=== PATIENT | male | born 1935 | race Caucasian/White ===

== ENCOUNTER 2019-03-16 16:26 | Inpatient (IN) | payer OTHER, MEDICAID ==
[~2019-03-16] VITALS: Ht 167.6 cm; Wt 75.3 kg
[~2019-03-16 16:26] MED LIST: APIX5TAB PO; BUDE6HFA INH; CARV6.2554 PO; FERR324T11 PO; FURO20TA4 PO; IPRA3AMP9 INH; LEVA1.2527 INH; LIP10 PO; PRED10TA PO
[2019-03-16] MEDS ORDERED: ROCURONIUM BROMIDE 10 MG/ML (ZEMURON) IV ONE (18:00)
[2019-03-16] MEDS ORDERED: LR 1,000 ML IV.SOLN IV ONE (18:00)
[2019-03-16] MEDS ORDERED: NS IRRIG SOLN 1000 ML IR ONE (18:00)
[2019-03-16] MEDS ORDERED: SEVOFLURANE 15 MIN GAS INH ONE (18:00)
--- NOTE | 2019-03-17 19:10 | NUR ---
OPENING NOTES RECEIVE REPORT FROM MORNING SHIFT NURSE. PATIENT ADMITTED BY DR. VALENCIA WITH THE DIAGNOSIS OF DIVERTING COLOSTOMY. PATIENT ON MECHANICAL VENTILATOR, OPERATING WELL. NO SIGNS OF RESPIRATORY DISTRESS AND DISCOMFORT NOTED. G-TUBE NOTED WITH DRAIN, DRAINING BY GRAVITY. RECTAL TUBE NOTED, REYNOSO CATHETER ATTACHED PROPERLY DRAINING BY GRAVITY. PATIENT AND FAMILY ORIENTED TO ROOM. CALL LIGHT WITHIN REACH. SAFETY PRECAUTIONS IN PLACE. BED LOCKED AND LOWEST POSITION. WILL CONTINUE TO MONITOR PATIENT.
[2019-03-17] MEDS ORDERED: DILTIAZEM HCL 30 MG TABLET ONE (19:46)
[2019-03-17] MEDS ORDERED: ACETAMINOPHEN 650 MG/20.3 ML UDC ONE (19:58)
[2019-03-17 20:00] VITALS: BP_SYST 125
--- NOTE | 2019-03-17 20:11 | NUR ---
CHON OLIVER MADE AWARE OF PATIENTS HEART RATE 139. MD ORDERED TO CONTINUE MEDICATION. CARDIZEM 30 MG WAS GIVEN. WILL CONTINUE TO MONITOR PATIENT
[2019-03-17 20:15] VITALS: BP_SYST 125
[2019-03-17] MEDS ORDERED: *TPN PER PHARMACY XX PRN (21:45)
[2019-03-17] MEDS ORDERED: ACETAMINOPHEN 650 MG/20.3 ML UDC GT PRN (21:45)
--- NOTE | 2019-03-17 22:00 | NUR ---
CONSULTATION PAGED REASON FOR CONSULTATION:PULMO WAS CONSULT CALLED?Y PERSON WHO WAS NOTIFIED:KHADIJAH CONSULTING PHYSICIAN:SHELLY CARVALHO SENIOR MECHANICAL PROJECT ENGINEER SPECIALTY:PULMONARY SENIOR MECHANICAL PROJECT ENGINEER PHONE NUMBER:[phone] REQUESTING PHYSICIAN:MEERA MACHADO
--- NOTE | 2019-03-17 22:02 | NUR ---
CONSULTATION PAGED REASON FOR CONSULTATION:FOR DIVERTING COLOSTOMY WAS CONSULT CALLED?Y PERSON WHO WAS NOTIFIED:EFRAIN CONSULTING PHYSICIAN:SHERIDAN TRIPLETT MARINE PIPEFITTER SPECIALTY:SURGEON MARINE PIPEFITTER PHONE NUMBER:[phone] REQUESTING PHYSICIAN:MEERA MACHADO
[2019-03-17] MEDS ORDERED: ENOX60DI7 SQ (22:03)
[2019-03-17] MEDS ORDERED: [UNRECOGNIZED DRUG - CODE] IV (22:03)
[2019-03-17] MEDS ORDERED: DILT30TA3 GT (22:03)
[2019-03-17] MEDS ORDERED: MEGE400O4 GT (22:03)
[2019-03-17] MEDS ORDERED: CALC500O PO (22:03)
[2019-03-17] MEDS ORDERED: NYSCR30 TP (22:03)
[2019-03-17] MEDS ORDERED: LORA-259 PO (22:03)
[2019-03-17] MEDS ORDERED: ONDA4VIA52 IVP (22:03)
[2019-03-17] MEDS ORDERED: FURO40TA5 IVP (22:03)
[2019-03-17] MEDS ORDERED: METR500T IVPB (22:06)
[2019-03-17] MEDS ORDERED: MERO500V IV (22:06)
[2019-03-17] MEDS ORDERED: SSREG SUBCUT (22:07)
[2019-03-17] MEDS ORDERED: VANC250C11 GT (22:13)
[2019-03-17] MEDS ORDERED: REGL10 IVP (22:13)
[2019-03-17] MEDS ORDERED: PRO40 IVP (22:13)
[2019-03-17] MEDS ORDERED: POTA20TA83 GT (22:13)
[2019-03-17] MEDS: VANCOMYCIN HCL 250 MG CAPSULE GT SCH (22:30)
[2019-03-17] MEDS ORDERED: VERAPAMIL HCL 2.5 MG/ML 2ML VIAL IV SCH (22:30)
[2019-03-17] MEDS ORDERED: LevALBUTEROL HCL 1.25 MG/0.5 ML *CONC.* VIAL.NEB (XOPENEX CONC.) INH PRN (22:30)
[2019-03-17] MEDS ORDERED: METOPROLOL TARTRATE 5 MG/5 ML VIAL IVP PRN (22:30)
[2019-03-17] MEDS ORDERED: ONDANSETRON HCL 4 MG/2 ML VIAL IVP SCH (22:30)
[2019-03-17] MEDS ORDERED: DIGOXIN 0.5 MG/2 ML AMP IVP ONE (22:30)
[2019-03-17] MEDS: DILTIAZEM HCL 30 MG TABLET GT SCH (22:34)
[2019-03-17] MEDS ORDERED: ACETAMINOPHEN 325 MG TABLET GT PRN (22:45)
[2019-03-17] MEDS ORDERED: KCL 20 mEq in D5/0.45NS 1000mL 1,000 ML IV ONE (23:04)
[2019-03-17] MEDS ORDERED: MEROPENEM 500 MG VIAL IV ONE (23:15)
--- NOTE | 2019-03-17 23:30 | NUR ---
MED PASS DUE MEDICATIONS GIVEN AT THIS TIME. PATIENT ASLEEP, NO SIGNS OF RESPIRATORY DISTRESS AND DISCOMFORT NOTED. BREATHING EVEN AND UNLABORED. IVF INFUSING WELL, PATENCY NOTED. PEG-TUBE IN PLACE DRESSING INTACT, DRAINING BY GRAVITY, REYNOSO CATHETER DRAINING BY GRAVITY, RECTAL TUBE NOTED, DRAINING BY GRAVITY. SAFETY PRECAUTIONS IN PLACE. WILL CONTINUE TO MONITOR PATIENT
[2019-03-17] MEDS: CARVEDILOL 6.25 MG TABLET (COREG) PO SCH (23:32)
[2019-03-17] MEDS: KCL 20 mEq in D5/0.45NS 1000mL 1,000 ML IV SCH (23:32)
[2019-03-17] MEDS: PANTOPRAZOLE SODIUM 40 MG/VIAL (PROTONIX) IVP SCH (23:33)
[2019-03-17] MEDS: MEROPENEM 500 MG VIAL IV SCH (23:34)
--- NOTE | 2019-03-17 23:42 | NUR ---
CONSULTATION PAGED REASON FOR CONSULTATION:PULMO WAS CONSULT CALLED?Y PERSON WHO WAS NOTIFIED:CARMEN CONSULTING PHYSICIAN:SIXTO GOLDEN PRICING INTERN SPECIALTY:PULMONARY PRICING INTERN PHONE NUMBER:[phone] REQUESTING PHYSICIAN:MEERA MACHADO
--- NOTE | 2019-03-18 00:01 | NUR ---
RN ROUNDS PATIENT ASLEEP AT THIS TIME, IVF INFUSING WELL. REYNOSO CATHETER DRAINING BY GRAVITY. G-TUBE WITH DRAIN, DRAINING BY GRAVITY, MECHANICAL VENTILATOR OPERATING WELL. NO SIGNS OF RESPIRATORY DISTRESS NAD DISCOMFORT NOTED. SAFETY PRECAUTIONS IN PLACE. WILL CONTINUE TO MONITOR PATIENT.
[2019-03-18] MEDS: LevALBUTEROL HCL 1.25 MG/0.5 ML *CONC.* VIAL.NEB (XOPENEX CONC.) INH SCH ×4 (01:18→19:41)
[2019-03-18 02:06] VITALS: BP_SYST 125
[2019-03-18 02:36] VITALS: BP_SYST 121
--- NOTE | 2019-03-18 04:30 | NUR ---
WOUND CARE WOUND CARE DONE AT THIS TIME, PHOTOGRAPH TAKEN AND ADDED TO CHART FOR DOCUMENTATION. IVF INFUSING WELL. REYNOSO CATHETER DRAINING BY GRAVITY. G-TUBE WITH DRAIN, DRAINING BY GRAVITY, MECHANICAL VENTILATOR OPERATING WELL. NO SIGNS OF RESPIRATORY DISTRESS NAD DISCOMFORT NOTED. SAFETY PRECAUTIONS IN PLACE. WILL CONTINUE TO MONITOR PATIENT.
[2019-03-18] MEDS: DILTIAZEM HCL 30 MG TABLET GT SCH ×2 (05:25→14:22)
[2019-03-18] MEDS: VANCOMYCIN HCL 250 MG CAPSULE GT SCH ×2 (05:28)
[2019-03-18] MEDS: MEROPENEM 500 MG VIAL IV SCH (05:29)
--- NOTE | 2019-03-18 05:36 | NUR ---
HELD CARDIZEM AT THIS TIME/BS=87 CHARGE NURSE MADE AWARE OF PATIENTS VITAL SIGNS BP 103/50, HR 92. PATIENT ASLEEP AT THIS TIME. NO SIGNS OF RESPIRATORY DISTRESS AND DISCOMFORT NOTED. DUE MEDICATION ARE GIVEN. SAFETY PRECAUTIONS IN PLACE. WILL CONTINUE TO MONITOR
--- NOTE | 2019-03-18 06:22 | NUR ---
CLOSING NOTES PATIENT ASLEEP AT THIS TIME. NO SIGNS OF RESPIRATORY DISTRESS AND DISCOMFORT NOTED. PATIENT ON MECHANICAL VENTILATOR OPERATING WELL. SETTING KEPT THROUGHOUT THE SHIFT. IVF INFUSING WELL, PATENCY NOTED. IV SITE, NO REDNESS AND INFILTRATION NOTED, COVERED WITH CLEAN AND DRY DRESSING. G-TUBE, DRAINING WELL BY GRAVITY, REYNOSO CATHETER, ATTACHED AND SECURED, DRAINING BY GRAVITY. RECTAL TUBE, ATTACHED AND DRAINING BY GRAVITY. SAFETY PRECAUTIONS IN PLACE. BED LOCKED AND AT LOWEST POSITION. ALL NEEDS MET THROUGHOUT THE SHIFT. WILL CONTINUE TO MONITOR UNTIL ENDORSED TO ONCOMING SHIFT NURSE.
--- NOTE | 2019-03-18 07:15 | NUR ---
Report and patient given by NOC shift nurse. In no acute distress. Side rails x 3 up. Call light with in reach.
[2019-03-18 07:32] LABS: BASOPHILS # (AUTO) 0.1 K/uL (0.0-0.2); BASOPHILS % (AUTO) 0.7 % (0.0-2.0); EOSINOPHILS # (AUTO) 0.1 K/uL (0.0-0.4); EOSINOPHILS % (AUTO) 0.7 % (0.0-4.0); HEMATOCRIT 28.6 % (36-54); HEMOGLOBIN 9.2 g/dL (14.0-18.0); LYMPHOCYTES % (AUTO) 20.1 % (20.5-51.5); MEAN CORPUSCULAR HEMOGLOBIN 30 pg (27-31); MEAN CORPUSCULAR HGB CONC 32 % (32-36); MEAN CORPUSCULAR VOLUME 93 fL (79.0-98.0); MONOCYTES % (AUTO) 6.6 % (1.7-9.3); NEUTROPHILS # (AUTO) 10.7 K/uL (1.8-7.7); NEUTROPHILS % (AUTO) 71.9 % (40.0-70.0); PLATELET COUNT (AUTO) 381 K/uL (130-430); RED BLOOD CELL COUNT(AUTO) 3.06 MIL/uL (4.2-6.2); RED CELL DISTRIBUTION WIDTH 19.5 % (9.0-15.0); WHITE BLOOD COUNT (AUTO) 14.9 K/uL (4.8-10.8)
[2019-03-18] MEDS ORDERED: VANCOMYCIN HCL ORAL SOLUTION 250 MG/5 ML, 80 ML GT SCH (07:35)
[2019-03-18 08:00] VITALS: BP_SYST 93
[2019-03-18 08:01] LABS: INR 1.3 (0.80-1.20); PROTHROMBIN TIME 13.1 SECS (9.5-12.5)
[2019-03-18 08:13] LABS: TRIGLYCERIDES 231 mg/dL (30-150)
[2019-03-18 08:31] LABS: CHOLESTEROL 84 mg/dL (<200); HDL CHOLESTEROL 7 mg/dL (>45); LDL CHOLESTEROL 46 mg/dL (<100)
[2019-03-18 08:40] LABS: ANION GAP 4 (5-15); CALCIUM 9.5 mg/dL (8.4-11.0); CHLORIDE 112 mmol/L (98-107); GLUCOSE 92 mg/dL (70-99); POTASSIUM 4.8 mmol/L (3.5-5.1); SODIUM SERUM 145 mmol/L (136-145)
[2019-03-18 08:41] LABS: ALANINE AMINOTRANSFERASE 16 U/L (12-78); ALBUMIN 1.3 g/dL (3.4-4.8); ASPARTATE AMINOTRANSFERASE 74 U/L (10-37); CREATININE 0.79 mg/dL (0.55-1.30); LIPASE 124 U/L (73-393); THYROID STIMULATING HORMONE 4.09 uIu/mL (0.36-3.74); TOTAL BILIRUBIN 0.9 mg/dL (0.0-1.0); UREA NITROGEN, BLOOD 44 mg/dL (8-21)
[2019-03-18] MEDS ORDERED: FUROSEMIDE 40 MG TABLET GT SCH (09:00)
[2019-03-18] MEDS ORDERED: PREDNISONE 10 MG TABLET PO SCH (09:00)
--- NOTE | 2019-03-18 09:15 | NUR ---
Assessed patient. In no acute distress. Side rails x 3 up. Call light with in reach.
[2019-03-18] MEDS: NYSTATIN 30 GM TOPICAL CREAM TP SCH ×2 (09:44→20:44)
[2019-03-18] MEDS: PANTOPRAZOLE SODIUM 40 MG/VIAL (PROTONIX) IVP SCH ×2 (09:44→20:39)
[2019-03-18] MEDS: CARVEDILOL 6.25 MG TABLET (COREG) PO SCH (09:45)
--- NOTE | 2019-03-18 10:13 | NUR ---
Nutrition Update Patel Scale 11 noted. Pt admitted for diverting colostomy Diet: TPN BMI: 26.9 kg/m2 RD to follow per nutrition care standards.
--- NOTE | 2019-03-18 10:55 | NUR ---
RT NOTES- AC 12 REPORTED TO THAT PT HAS BEEN TRIGGERING APENIC ALARM. AFTER ASSESSING PT CONDITION. PER CHANGED VENT SETTINGS TO AC 12, 450, PEEP 5, 40%FIO2. NIDHI HIGUERA AND NIDHI ABBOTT MADE AWARE. WILL CONTINUE MONITORING.
--- NOTE | 2019-03-18 11:15 | NUR ---
Assessed patient. In no acute distress. Side rails x 3 up. Call light with in reach.
[2019-03-18] MEDS: KCL 20 mEq in D5/0.45NS 1000mL 1,000 ML IV SCH ×4 (11:20→22:22)
--- NOTE | 2019-03-18 13:15 | NUR ---
Assessed patient. In no acute distress. Side rails x 3 up. Call light with in reach.
--- NOTE | 2019-03-18 13:40 | NUR ---
RT NOTES - 30%FIO2 DECREASED FIO2 TO 30% PER DR. LIN TITRATION ORDERS.
--- NOTE | 2019-03-18 13:50 | NUR ---
RT NOTES- SPUTUM SAMPLE SPUTUM SAMPLE COLLECTED AND SENT TO LAB AT 1345. NOTIFIED NIDHI ABBOTT.
[2019-03-18] MEDS: MEROPENEM 500 MG in NS 50 ML IV SCH ×2 (14:19→21:02)
--- NOTE | 2019-03-18 15:15 | NUR ---
Assessed patient. In no acute distress. Side rails x 3 up. Call light with in reach.
--- NOTE | 2019-03-18 16:02 | NUR ---
MD Mabry at bedside.
--- NOTE | 2019-03-18 16:55 | NUR ---
Called Anusha Colvin per MD Mabry request for colonoscopy and pathology report, was informed to contact medical records tomorrow, will endorse to NOC shift.
--- NOTE | 2019-03-18 17:05 | NUR ---
MD Mabry new order NPO, no medications through GT tube.
--- NOTE | 2019-03-18 17:15 | NUR ---
Assessed patient. In no acute distress. Side rails x 3 up. Call light with in reach.
--- NOTE | 2019-03-18 17:26 | NUR ---
Informed collection specialist instructional supervisor MD Silvio Mabry's request to hold off on all gt medications and MD Talbot requested to reconcile heart medications with instructional supervisor. New order to hold cardizem and coreg, new order lopressor 5 mg IVP every 6 hours. MD Anguiano stated surgery could cause drop in blood pressure, will address lasix after surgery. Orders placed and carried out.
[2019-03-18] MEDS: METOPROLOL TARTRATE 5 MG/5 ML VIAL IVP SCH ×2 (18:42→23:47)
--- NOTE | 2019-03-18 19:15 | NUR ---
Report given and endorsed patient to oncoming shift. Assessed patient. In no acute distress. Side rails x 3 up. Call light with in reach.
[2019-03-18 20:00] VITALS: BP_SYST 95
--- NOTE | 2019-03-18 20:00 | NUR ---
Received pt. from day RN. Assessment done and completed. Keep pt. HOB UP elevated @ 45-55 degrees angle. Pt. kept on NPO. V/S taken and recorded. Pt. on continuous Vent on AC mode rate = 12, TV = 450 , F102 = 40 % , Peep = 5. Suctioned secretions from the trach. and mouth as needed. Keep airway patent and clear. Keep pt. safe and fiberglass laminator bed. Pt. afib @ the monitor @ the 70's to low 100's per minute. No s/s of facial grimacing. No s/ of agitation or restlessness. No s/s of moaning or crying. Pt. calm and sleeping.
--- NOTE | 2019-03-18 20:30 | NUR ---
TPN and LIPID started @ around this time. TPN started @ 42 mls./hr. and Lipid started @ 5 mls./hr. attached to the TPN tube in a Y connection with the New Filter attached to the bottom. Keep pt. on NPO. Replaced a new bag of IVF of D51/2 NS with Potassium Chloride 20 meq. and decreased the rate from 100 mls/hr. to 50 mls/hr. when the TPN started as ordered by the Doctor. Keep pt. Turned/repositioned pt. to the sides with HOB UP @ all times between 45-55 degrees angle.
[2019-03-18] MEDS: FAT EMULSIONS 250 ML IV SCH (20:34)
--- NOTE | 2019-03-18 20:35 | NUR ---
Due meds. IV. medications administered to the pt. @ around this time.
[2019-03-18] MEDS ORDERED: ENOXAPARIN SODIUM 40 MG/0.4 ML SYRINGE SUBCUT SCH (21:00)
[2019-03-18] MEDS ORDERED: [UNRECOGNIZED DRUG - OTHER] IV SCH ×8 (21:00)
[2019-03-18] MEDS ORDERED: SODIUM ACETATE IV SCH ×8 (21:00)
[2019-03-18] MEDS ORDERED: POTASSIUM CHLORIDE IV SCH ×8 (21:00)
[2019-03-18] MEDS ORDERED: TPN CENTRAL IV SCH ×8 (21:00)
[2019-03-18] MEDS ORDERED: KCL 20 mEq in D5/0.45NS 1000mL 1,000 ML IV ONE (21:28)
[2019-03-19] VITALS (7 sets, daily range): BP systolic 98–125
--- NOTE | 2019-03-19 | NUR ---
Accucheck taken with result of = 143 , No coverage of Insulin needed.
--- NOTE | 2019-03-19 00:30 | NUR ---
Pt. sleeps most of the time, aphasic, non-verbal due to presence of Trach. Arousable by touch and environmental noise. Stil Afib. @ the monitor. Keep clean, dry, safe and commodity industry analyst bed. Keep pt. on NPO. TPN and Lipids ongoing @ the same rate it was started.
[2019-03-19] MEDS: LevALBUTEROL HCL 1.25 MG/0.5 ML *CONC.* VIAL.NEB (XOPENEX CONC.) INH SCH ×4 (00:59→20:07)
--- NOTE | 2019-03-19 04:00 | NUR ---
Complete bedbathe given to the pt. Keep pt. clean and dry in bed. Keep NPO. No s/s of agitation or restlessness. Pt. sleeping calm and quiet. Suctioned secretions from the Trach. and mouth as needed. Provided pt. oral care. Keep HOB UP @ all times.
--- NOTE | 2019-03-19 06:20 | NUR ---
Due IV meds. given @ around 0620 Am and Accucheck result = 142 , No coverage of Insulin needed. Monitor v/s @ the bedside. Pt. still afib. @ the Tele monitor. Still on NPO. TPN and LIPIDS ongoing and IVF of D5 1/2 NS w/ 20 meq. KCL running @ 50 mls./hr. continuously.
[2019-03-19] MEDS: MEROPENEM 500 MG in NS 50 ML IV SCH ×3 (06:22→21:25)
[2019-03-19] MEDS: METOPROLOL TARTRATE 5 MG/5 ML VIAL IVP SCH ×3 (06:26→17:12)
--- NOTE | 2019-03-19 06:54 | NUR ---
Nutrition Update Patel Scale 10 noted. Pt admitted for Diverting Colostomy Diet: NPO BMI: 26.9 kg/m2 RD to follow per nutrition care standards.
--- NOTE | 2019-03-19 07:10 | NUR ---
Opening Note Received bedside report from endorsing RN for continuation of care. Received patient resting in bed, no signs or symptoms of acute distress noted. Bed locked in lowest position, bed alarm on, and call light within reach. Fall and safety precautions in place.
[2019-03-19 08:08] LABS: BASOPHILS # (AUTO) 0.1 K/uL (0.0-0.2); BASOPHILS % (AUTO) 0.6 % (0.0-2.0); EOSINOPHILS # (AUTO) 0.2 K/uL (0.0-0.4); HEMATOCRIT 29.5 % (36-54); HEMOGLOBIN 9.5 g/dL (14.0-18.0); LYMPHOCYTES # (AUTO) 2.8 K/uL (1.0-5.5); LYMPHOCYTES % (AUTO) 18.8 % (20.5-51.5); MEAN CORPUSCULAR HEMOGLOBIN 30 pg (27-31); MEAN CORPUSCULAR HGB CONC 32 % (32-36); MEAN CORPUSCULAR VOLUME 94 fL (79.0-98.0); MONOCYTES # (AUTO) 0.9 K/uL (0.0-1.0); MONOCYTES % (AUTO) 5.7 % (1.7-9.3); NEUTROPHILS # (AUTO) 11.2 K/uL (1.8-7.7); NEUTROPHILS % (AUTO) 73.9 % (40.0-70.0); PLATELET COUNT (AUTO) 369 K/uL (130-430); RED BLOOD CELL COUNT(AUTO) 3.14 MIL/uL (4.2-6.2); RED CELL DISTRIBUTION WIDTH 19.7 % (9.0-15.0); WHITE BLOOD COUNT (AUTO) 15.1 K/uL (4.8-10.8)
[2019-03-19 08:26] LABS: SODIUM SERUM 143 mmol/L (136-145)
[2019-03-19 08:27] LABS: ALANINE AMINOTRANSFERASE 20 U/L (12-78); ALBUMIN 1.2 g/dL (3.4-4.8); ANION GAP 7 (5-15); ASPARTATE AMINOTRANSFERASE 73 U/L (10-37); CALCIUM 8.8 mg/dL (8.4-11.0); CHLORIDE 110 mmol/L (98-107); CREATININE 0.79 mg/dL (0.55-1.30); GLUCOSE 154 mg/dL (70-99); PHOSPHORUS 2.9 mg/dL (2.7-4.5); POTASSIUM 4.7 mmol/L (3.5-5.1); TOTAL BILIRUBIN 0.8 mg/dL (0.0-1.0); UREA NITROGEN, BLOOD 42 mg/dL (8-21)
--- NOTE | 2019-03-19 09:02 | NUR ---
Dr. Miller in to see patient. New orders received.
[2019-03-19] MEDS: NYSTATIN 30 GM TOPICAL CREAM TP SCH ×2 (09:53→21:25)
[2019-03-19] MEDS: PANTOPRAZOLE SODIUM 40 MG/VIAL (PROTONIX) IVP SCH ×2 (09:53→21:02)
[2019-03-19] MEDS: ENOXAPARIN SODIUM 40 MG/0.4 ML SYRINGE SUBCUT SCH (09:54)
--- NOTE | 2019-03-19 11:58 | NUR ---
Dr. Batres in to see patient. New orders received.
[2019-03-19] MEDS ORDERED: methylPREDNISolone SOD SUCC 40 MG/ML VIAL IVP ONE (12:00)
--- NOTE | 2019-03-19 12:19 | NUR ---
Dietitian Recommendations *Recommend continuing NPO per MD. *Recommend D50% AA10% at 60ml/hr(goal rate), IL20% at 5ml/hr via central line. Provides: 1752 kcal, 72 gm protein and GIR 3.3 gmCHO/kg/min. Meets: 96% of est calorie needs and 73% of est protein needs. *Continue MVI w/ minerals for wound healing. Please see Nutritional Assessment for details. FEDERICA, RD
--- NOTE | 2019-03-19 14:16 | NUR ---
Patient resting in bed, no signs or symptoms of acute distress noted. Bed locked in lowest position and bed alarm on. Fall and safety precautions in place.
--- NOTE | 2019-03-19 14:35 | NUR ---
Dr. Mabry in to see patient. No new orders.
--- NOTE | 2019-03-19 16:05 | NUR ---
Hammerer Tab: met with pt. to conduct a DCPA. WIRE STRAIGHTENER read up on the pt. as notes stated pt was non verbal, glenroy Stephen confirmed all of this. WIRE STRAIGHTENER will contact family member on face sheet. WIRE STRAIGHTENER called and spoke to
--- NOTE | 2019-03-19 16:14 | NUR ---
Wound Care Wound care performed per wound care guidelines. Patient tolerated well with minimal discomfort. No signs or symptoms of acute distress noted.
--- NOTE | 2019-03-19 16:37 | NUR ---
Dr. Baileyium in to see patient. New orders received.
[2019-03-19] MEDS: KCL 20 mEq in D5/0.45NS 1000mL 1,000 ML IV SCH (17:12)
[2019-03-19] MEDS: INSULIN REGULAR, HUMAN 100 UNITS/ML, 10 ML VIAL (humuLIN R) SUBCUT PRN (17:20)
--- NOTE | 2019-03-19 18:43 | NUR ---
Patient resting in bed, arousable to touch. No signs or symptoms of acute distress noted. Bed locked in lowest position and bed alarm on. Fall and safety precautions in place. Will endorse bedside report to oncoming RN.
--- NOTE | 2019-03-19 19:10 | NUR ---
Endorsement Endorsed bedside report to oncoming RN using SBAR approach for continuation of care.
--- NOTE | 2019-03-19 20:00 | NUR ---
ASSUMED CARE. RECEIVED AWAKE, ALERT,NON-VERBAL. AFEBRILE, NOT IN ACUTE DISTRESS. NO PAIN OR DISCOMFORT NOTED. WITH IV FLUID D5 1/2 NS + 20 MEQ KCL INFUSING AT 50 ML/HR, TPN @ 42 ML/HR AND LIPIDS AT 5 ML/HR ALL VIA LEFT UPPER ARM DOUBLE LUMEN PICC LINE. ON MECHANICAL VENTILATOR WITH THE FOLLOWING SETTINGS: RZ=545, FIO2=30% AC=12 PEEP=5. IYC4=448% A.FIB. AT 80'S/MINUTE ON THE MONITOR. REYNOSO DRAINING WILMAN CLEAR URINE. RECTAL TUBE DRAINING DARK BROWN COLORED LIQUID STOOLS. CONTACT ISOLATION FOR MDRO OF SPUTUM OBSERVED. VS STABLE, WILL CONTINUE TO MONITOR. NEEDS ATTENDED.
[2019-03-19] MEDS ORDERED: TPN CENTRAL 0.0001 ML, SODIUM ACETATE 35 MEQ, POTASSIUM CHLORIDE 20 MEQ, K PHOS 9 MM, M... IV SCH ×9 (21:00)
[2019-03-19] MEDS: FAT EMULSIONS 250 ML IV SCH (21:01)
--- NOTE | 2019-03-19 21:01 | NUR ---
NEW BAG OF TPN AND LIPIDS STARTED. OTHER DUE MEDICATION GIVEN.
[2019-03-20] VITALS (7 sets, daily range): BP systolic 109–155
[2019-03-20] MEDS: INSULIN REGULAR, HUMAN 100 UNITS/ML, 10 ML VIAL (humuLIN R) SUBCUT PRN ×4 (00:16→18:01)
--- NOTE | 2019-03-20 00:16 | NUR ---
FINGERSTICK BLOOD SUGAR MQYUL=716. 6 UNITS OF REGULAR INSULIN SQ AND OTHER DUE MEDICATION GIVEN. SIDE RAILS UP, CALL LIGHT WITHIN REACH. KEPT WARM AND COMFORTABLE. VS REMAIN STABLE.
[2019-03-20] MEDS: METOPROLOL TARTRATE 5 MG/5 ML VIAL IVP SCH ×4 (00:17→18:05)
[2019-03-20] MEDS: LevALBUTEROL HCL 1.25 MG/0.5 ML *CONC.* VIAL.NEB (XOPENEX CONC.) INH SCH ×4 (00:35→19:42)
--- NOTE | 2019-03-20 02:15 | NUR ---
ASLEEP, NO CHANGE IN CONDITION. WILL CONTINUE TO MONITOR.
--- NOTE | 2019-03-20 04:00 | NUR ---
ASLEEP, NO SIGNIFICANT CHANGE IN CONDITION.
[2019-03-20] MEDS: MEROPENEM 500 MG in NS 50 ML IV SCH ×3 (06:12→21:38)
--- NOTE | 2019-03-20 06:14 | NUR ---
FINGERSTICK BLOOD SUGAR ATGIP=757. 4 UNITS OF REGULAR INSULIN SQ GIVEN PER SLIDING SCALE. OTHER DUE MEDS ALSO GIVEN.
[2019-03-20 07:01] LABS: BASOPHILS # (AUTO) 0.1 K/uL (0.0-0.2); BASOPHILS % (AUTO) 0.6 % (0.0-2.0); HEMATOCRIT 30.3 % (36-54); HEMOGLOBIN 9.7 g/dL (14.0-18.0); LYMPHOCYTES # (AUTO) 2.5 K/uL (1.0-5.5); LYMPHOCYTES % (AUTO) 20.9 % (20.5-51.5); MEAN CORPUSCULAR HEMOGLOBIN 30 pg (27-31); MEAN CORPUSCULAR HGB CONC 32 % (32-36); MEAN CORPUSCULAR VOLUME 95 fL (79.0-98.0); MONOCYTES # (AUTO) 0.5 K/uL (0.0-1.0); MONOCYTES % (AUTO) 4.1 % (1.7-9.3); NEUTROPHILS % (AUTO) 74.4 % (40.0-70.0); PLATELET COUNT (AUTO) 367 K/uL (130-430); RED CELL DISTRIBUTION WIDTH 19.8 % (9.0-15.0); WHITE BLOOD COUNT (AUTO) 12.1 K/uL (4.8-10.8)
--- NOTE | 2019-03-20 07:12 | NUR ---
ENDORSED CARE TO STORMY TERRELL STABLE.
[2019-03-20 07:25] LABS: ALANINE AMINOTRANSFERASE 31 U/L (12-78); ALBUMIN 1.2 g/dL (3.4-4.8); ANION GAP 6 (5-15); ASPARTATE AMINOTRANSFERASE 84 U/L (10-37); CALCIUM 8.5 mg/dL (8.4-11.0); CHLORIDE 110 mmol/L (98-107); CREATININE 0.73 mg/dL (0.55-1.30); GLUCOSE 259 mg/dL (70-99); PHOSPHORUS 2.8 mg/dL (2.7-4.5); POTASSIUM 4.5 mmol/L (3.5-5.1); SODIUM SERUM 141 mmol/L (136-145); TOTAL BILIRUBIN 0.7 mg/dL (0.0-1.0); UREA NITROGEN, BLOOD 36 mg/dL (8-21)
[2019-03-20 07:49] LABS: TOTAL IRON BIND. CAPACITY 51 ug/dL (250-450)
--- NOTE | 2019-03-20 08:00 | NUR ---
initial notes rec patient awake opens eyes and non verbally responsive. pt on mechanical ventilator , no sob noted. bed to the lowest position and side rails up and locked. call light within reached. gt clamped and waiting for family re sx of dr moy.
[2019-03-20 09:18] LABS: TRIGLYCERIDES 299 mg/dL (30-150)
[2019-03-20] MEDS: methylPREDNISolone SOD SUCC 40 MG/ML VIAL IVP SCH (09:53)
[2019-03-20] MEDS: PANTOPRAZOLE SODIUM 40 MG/VIAL (PROTONIX) IVP SCH ×2 (09:53→21:38)
[2019-03-20] MEDS: ENOXAPARIN SODIUM 40 MG/0.4 ML SYRINGE SUBCUT SCH (09:55)
[2019-03-20] MEDS: NYSTATIN 30 GM TOPICAL CREAM TP SCH ×2 (09:56→21:39)
--- NOTE | 2019-03-20 10:00 | NUR ---
rounds due meds given and blaise well. was suctioned with samall amount of thin phlegm. no sob noted.
--- NOTE | 2019-03-20 10:54 | NUR ---
rounds seen by dr moy and spoke with daughter nikky but unable to make decision. re scheduled sx on . daughter jimena was called as well re consent .
--- NOTE | 2019-03-20 13:25 | NUR ---
WHITLOCK CATH: # 16 FR Whitlock catheter with cc bulb inserted replacing the olfd whitlock with use of sterile technique. NO RESISTANCE NOTED DURING INSERTION. Bulb inflated with cc sterile water. Immediate return of cc urine noted. Bedside drainage bag placed below level of bladder. Urine sample will be collected for UA and Urine Culture. Patient tolerated procedure well
[2019-03-20] MEDS: KCL 20 mEq in D5/0.45NS 1000mL 1,000 ML IV SCH (14:31)
[2019-03-20 15:03] LABS: BILIRUBIN,URINE NEGATIVE (NEGATIVE); CLARITY/URINE CLEAR (CLEAR); COLOR,URINE YELLOW (YELLOW); GLUCOSE,URINE NEGATIVE (NEGATIVE); KETONES,URINE NEGATIVE (NEGATIVE); LEUKOCYTE ESTERASE ,URINE 1+ (NEGATIVE); NITRITE, URINE NEGATIVE (NEGATIVE); PROTEIN URINE TRACE (NEGATIVE); UROBILINOGEN,URINE 0.2 (0.2-1.0)
[2019-03-20 15:04] LABS: BLOOD, URINE TRACE (NEGATIVE)
[2019-03-20 15:09] LABS: BACTERIA,URINE FEW /HPF (None Seen); MUCUS,URINE 1+ /LPF (None Seen)
--- NOTE | 2019-03-20 17:00 | NUR ---
rounds still awaiting for the fax paper from roxi guillaume the colonoscopy and pathology report. will follow up again in am. no sob noted.
--- NOTE | 2019-03-20 18:49 | NUR ---
closing notes resting quietly at this time. was turned repositioned . due meds were given. no hypo hyperglycemic reaction noted. bed to the lowest position . seen by dr erickson at bedside. informed him re sx with dr moy on .
--- NOTE | 2019-03-20 20:00 | NUR ---
ASSUMED PT'S CARE. RECEIVED AWAKE, ALERT,NON-VERBAL. AFEBRILE, NOT IN ACUTE DISTRESS. NO PAIN OR DISCOMFORT NOTED. WITH IV FLUID D5 1/2 NS + 20 MEQ KCL INFUSING AT 50 ML/HR, TPN @ 42 ML/HR AND LIPIDS AT 5 ML/HR ALL VIA LEFT UPPER ARM DOUBLE LUMEN PICC LINE. LIPIDS ORDERED DISCONTINUED AND TPN RATE INCREASED TO 50 ML/HR. ON MECHANICAL VENTILATOR WITH THE FOLLOWING SETTINGS: RD=528, FIO2=30% AC=12 PEEP=5. GRX2=020% A.FIB. AT 70'S/MINUTE ON THE MONITOR. REYNOSO DRAINING WILMAN CLEAR URINE. RECTAL TUBE DRAINING DARK BROWN COLORED LIQUID STOOLS. LEVEL IS AT 180 ML. CONTACT ISOLATION FOR MDRO OF SPUTUM OBSERVED. VS STABLE, WILL CONTINUE TO MONITOR. NEEDS ATTENDED.
[2019-03-20] MEDS ORDERED: K PHOS IV SCH ×10 (21:00)
[2019-03-20] MEDS ORDERED: SODIUM ACETATE IV SCH ×10 (21:00)
[2019-03-20] MEDS ORDERED: [UNRECOGNIZED DRUG - OTHER] IV SCH ×10 (21:00)
[2019-03-20] MEDS ORDERED: POTASSIUM ACETATE IV SCH ×10 (21:00)
[2019-03-20] MEDS ORDERED: TPN CENTRAL IV SCH ×10 (21:00)
--- NOTE | 2019-03-20 21:40 | NUR ---
LIPID DISCONTINUED. NEW BAG OF TPN STARTED AT THE RATE 50 ML/HR PER NEW ORDER. ALL OTHER DUE MEDICATIONS GIVEN.
[2019-03-21] MEDS: METOPROLOL TARTRATE 5 MG/5 ML VIAL IVP SCH ×4 (00:11→18:04)
[2019-03-21] MEDS: INSULIN REGULAR, HUMAN 100 UNITS/ML, 10 ML VIAL (humuLIN R) SUBCUT PRN ×4 (00:13→18:11)
--- NOTE | 2019-03-21 00:13 | NUR ---
AWAKE, NOT IN ACUTE DISTRESS. NO PAIN OR DISCOMFORT NOTED. FINGERSTICK BLOOD SGAR VHXEO=373. 4 UNITS OF REGULAR INSULIN SQ GIVEN PER SLIDING SCALE. DUE MEDICATION ALSO GIVEN.
[2019-03-21] MEDS: LevALBUTEROL HCL 1.25 MG/0.5 ML *CONC.* VIAL.NEB (XOPENEX CONC.) INH SCH ×4 (00:40→20:26)
--- NOTE | 2019-03-21 00:40 | NUR ---
WOUND CARE AND DRESSING CHANGE TO THE COCCYX DONE.
[2019-03-21 01:47] VITALS: BP_SYST 123
--- NOTE | 2019-03-21 02:00 | NUR ---
AWAKE, NO PAIN OR DISCOMFORT NOTED.
--- NOTE | 2019-03-21 03:30 | NUR ---
AWAKE, NOT IN ACUTE DISTRESS. REMAINS STABLE AND PAIN FREE.
[2019-03-21 04:07] LABS: FOLATE (FOLIC ACID) 8.3 ng/mL (>3.0)
--- NOTE | 2019-03-21 04:50 | NUR ---
ASLEEP, NO SIGNIFICANT CHANGE IN CONDITION. REMAINS STABLE AND PAIN FREE.
[2019-03-21 06:00] VITALS: BP_SYST 120
[2019-03-21] MEDS: MEROPENEM 500 MG in NS 50 ML IV SCH ×3 (06:21→21:43)
--- NOTE | 2019-03-21 06:21 | NUR ---
FINGERSTICK BLOOD SUGAR OCDFV=578. 4 UNITS OF REGULAR INSULIN SQ GIVEN PER SLIDING SCALE. DUE MEDS ALSO GIVEN.
--- NOTE | 2019-03-21 07:30 | NUR ---
ENDORSED CARE TO STORMY TERRELL STABLE.
[2019-03-21 07:43] LABS: ANION GAP 7 (5-15); CHLORIDE 111 mmol/L (98-107); CREATININE 0.54 mg/dL (0.55-1.30); GLUCOSE 228 mg/dL (70-99); PHOSPHORUS 2.3 mg/dL (2.7-4.5); POTASSIUM 4.2 mmol/L (3.5-5.1); SODIUM SERUM 142 mmol/L (136-145); UREA NITROGEN, BLOOD 30 mg/dL (8-21)
[2019-03-21 08:00] VITALS: BP_SYST 139
--- NOTE | 2019-03-21 08:30 | NUR ---
initial notes rec a call from dr moy asking re the colonoscopy and pathology report of patient. pt is awake laetrt non verbally reponsive, on mechanical ventilator and sat at 98 to 100 %. resp easy and unlabored. bed to the lowest position and side rails up and locked. call light withn reached.
[2019-03-21] MEDS: KCL 20 mEq in D5/0.45NS 1000mL 1,000 ML IV SCH (10:20)
[2019-03-21] MEDS: PANTOPRAZOLE SODIUM 40 MG/VIAL (PROTONIX) IVP SCH ×2 (10:21→21:43)
[2019-03-21] MEDS: methylPREDNISolone SOD SUCC 40 MG/ML VIAL IVP SCH (10:21)
[2019-03-21] MEDS: ENOXAPARIN SODIUM 40 MG/0.4 ML SYRINGE SUBCUT SCH (10:22)
[2019-03-21] MEDS: NYSTATIN 30 GM TOPICAL CREAM TP SCH ×2 (10:24→21:44)
[2019-03-21 11:14] VITALS: BP_SYST 146
[2019-03-21] MEDS: 0.45% NACL 1,000 ML IV SCH (11:30)
--- NOTE | 2019-03-21 12:00 | NUR ---
rounds no hypo hyperglycemic reaction noted. bed to the lowest position and side rails up and locked.
[2019-03-21] MEDS: NACL 0.9% 1,000 ML IV SCH (12:39)
[2019-03-21 15:17] VITALS: BP_SYST 134
--- NOTE | 2019-03-21 15:18 | NUR ---
Case mgt: Pt is having colon resection/colostomy today or tomorrow
--- NOTE | 2019-03-21 15:45 | NUR ---
WOUND EVALUATION: Wound Consult received from Dr. Talbot. Thank you, Dr. Talbot, for the consult. Patient received in a [place] Bed with an IsoFlex YESENIA mattress with low air loss therapy initiated, awake, nonverbal, nonresponsive to verbal commands, traces movements with eyes. Patient is unable to turn in bed independently. Patel Score is a 10. Past Medical History: Diabetes Mellitus, Paroxysmal Atrial Fibrillation, Dementia, history of Colitis, Congestive Heart Failure, G-tube placement, Tracheostomy. Recent Labs: WBC 12.1, RBC 3.20, hemoglobin 9.7, hematocrit 30.3, chloride 111, BUN 30, creatinine 0.54, glucose 228, calcium 7.0, phosphorus 2.3, albumin 1.2, PT 13.1, INR 1.3. Microbiology: MRSA screen results negative. Urine culture results negative. Intrinsic factors that delay wound healing: Diabetes Mellitus, Hypoalbuminemia. Extrinsic factors that delay wound healing: Decreased mobility. Wound Assessment: 1. Sacral-Coccygeal area: Stage IV pressure ulcer, present on admission. Wound bed has 50% yellow slough, 45% dark red tissue, 5% black tissue. Mild odor, scant yellow purulent drainage. Periwound pink, with black tissue present at 4 o'clock and 8 o'clock. Surrounding tissue has dark discoloration. Bone is visible. 100% undermining present (0.9 cm at 3 o'clock; 0.8 cm at 6 o'clock; 0.7 cm at 9 o'clock; 1.7 cm at 12 o'clock). Wound measures 7.1 cm x 6.5 cm x 3.0 cm. Recommend: Cleanse wound with normal saline. Apply moisture barrier cream to anjel-wound. Apply Venelex ointment to wound bed. Pack wound with three 2.2 inch tender wet dressings. Cover with Sacral foam dressing. Perform wound care daily, and as needed for dressing soiling or dislodgement. 2. Left Buttock: Stage III pressure ulcer, present on admission. Wound bed has 65% pink tissue, 30% yellow tissue, 5% red tissue. No odor, no drainage. Periwound intact. Wound measures 1.0 cm x 1.0 cm. Recommend: Cleanse wound with normal saline. Apply moisture barrier cream to anjel-wound. Apply Venelex ointment to wound bed. Cover with foam dressing. Perform wound care daily, and as needed for dressing soiling or dislodgement. 3. Right Proximal Anterior Thigh: Skin tear, present on admission. Wound bed has 100% pink tissue. No odor, no drainage. Periwound intact. Wound measures 1.0 cm x 1.0 cm. Recommend: Cleanse wound with normal saline. Apply moisture barrier cream to skin tear. Perform site BID, and as needed for soiling. Also recommend: Reposition patient [id number] only every 2 hours with pillow support and off-load pressure areas with pillows for pressure re-distribution. Offload, elevate and float bilateral heels with one pillow lengthwise under each extremity at all times. Perform skin care and monitor skin integrity Q shift. Use moisture barrier cream on buttocks and other moisture susceptible areas QID and as needed for soiling. Maintain patient on low air-loss therapy.
[2019-03-21] MEDS ORDERED: BALSAM PERU/CASTOR OIL 60 GM OINT...G. TP ONE (16:00)
--- NOTE | 2019-03-21 16:00 | NUR ---
rounds dr erickson made aware re patient sx in am. no sob noted.
--- NOTE | 2019-03-21 18:00 | NUR ---
rounds due meds given and blaise well. monitor pt's bp and stable/
--- NOTE | 2019-03-21 18:40 | NUR ---
closing notes daughter at bedside and updated re patient. aware of the sx in am but told her no specific at this point. no hypo hyperglycemic reaction oted. bed to the lowest positon and side rails up and locked.
--- NOTE | 2019-03-21 20:05 | NUR ---
OPENING NOTES Received bedside report from NIDHI Howard. Patient is resting in bed, eyes closed, breathing evenly and nonlabored. Daughter at the bedside, educated patient and daughter regarding plan of care and call light system, daughter stated understanding. Patient has IVF and TPN running, PICC line on HEATHER, patent and benign, no s/s of infection or infiltration noted. Patient has a whitlock catheter attached, secured, and draining to gravity. Patient has a trach and on mechanical ventilation: AC 12, FiO2 30, TV 350, PEEP at 5. Patient also has a rectal tube. Bed is locked, armed, and at the lowest position. Fall/safety/aspiration/isolation precautions. Will continue to monitor. Addendum: 03/22/19 at 0106 by Tab Kearns RN Patient has a trach and on mechanical ventilation: AC 12, FiO2 30, TV 450, PEEP at 5
[2019-03-21 21:00] VITALS: BP_SYST 141
[2019-03-21] MEDS ORDERED: SODIUM ACETATE IV SCH ×10 (21:00)
[2019-03-21] MEDS ORDERED: K PHOS IV SCH ×10 (21:00)
[2019-03-21] MEDS ORDERED: [UNRECOGNIZED DRUG - OTHER] IV SCH ×10 (21:00)
[2019-03-21] MEDS ORDERED: TPN CENTRAL IV SCH ×10 (21:00)
[2019-03-21] MEDS ORDERED: POTASSIUM CHLORIDE IV SCH ×10 (21:00)
--- NOTE | 2019-03-21 21:43 | NUR ---
MEDICATIONS/ROUNDS Patient is resting in bed, eyes closed, breathing evenly and nonlabored. Educated patient on medications, patient unable to state understanding because of being nonverbal. Administered medications, patient tolerated it well. Wound care done on sacral area, patient tolerated it well. Hygiene care performed. No s/s of distress at this time. Fall/safety/aspiration/isolation precautions.
--- NOTE | 2019-03-21 22:30 | NUR ---
ROUNDS Patient is resting in bed, awake, breathing evenly and nonlabored. No s/s of distress at this time, no other needs at this time. Fall/safety/aspiration/isolation precautions.
[2019-03-22] VITALS (12 sets, daily range): BP systolic 119–157
--- NOTE | 2019-03-22 00:30 | NUR ---
MEDICATIONS/ROUNDS Patient is resting in bed, awake, breathing evenly and nonlabored. Educated patient on medications, patient unable to state understanding because of being nonverbal. Administered medications, patient tolerated it well. GT dressing changed, patient tolerated it well. No s/s of distress at this time. Fall/safety/aspiration/isolation precautions.
[2019-03-22] MEDS: METOPROLOL TARTRATE 5 MG/5 ML VIAL IVP SCH ×5 (00:31→23:15)
[2019-03-22] MEDS: INSULIN REGULAR, HUMAN 100 UNITS/ML, 10 ML VIAL (humuLIN R) SUBCUT PRN ×4 (00:43→17:16)
[2019-03-22] MEDS: LevALBUTEROL HCL 1.25 MG/0.5 ML *CONC.* VIAL.NEB (XOPENEX CONC.) INH SCH ×4 (01:33→20:28)
--- NOTE | 2019-03-22 02:15 | NUR ---
ROUNDS Patient is resting in bed, eyes closed, breathing evenly and nonlabored. No s/s of distress at this time. Fall/safety/aspiration/isolation precautions.
--- NOTE | 2019-03-22 04:19 | NUR ---
ROUNDS Patient is resting in bed, eyes closed, breathing is even and nonlabored. No s/s of distress at this time. Fall/safety/aspiration/isolation precautions.
[2019-03-22] MEDS: MEROPENEM 500 MG in NS 50 ML IV SCH ×3 (05:46→22:37)
--- NOTE | 2019-03-22 06:15 | NUR ---
CLOSING NOTES Patient resting in bed, awake, breathing evenly and nonlabored. Medications administered, educated patient on medications, patient unable to state understanding due to being nonverbal, patient tolerated it well. Wound care done to rt upper thigh near buttocks, patient tolerated it well. PICC line dressing changed using sterile technique, patient tolerated it well. Will endorse plan of care to morning shift RN. Fall/safety/aspiration/isolation precautions.
--- NOTE | 2019-03-22 07:35 | NUR ---
AM ROUNDS: PATIENT AWAKE,NON VERBAL.ON VENT DEPENDENT.FIO2=30%.MODIFIED CODE,NO COMPRESSION ,CHEMICAL ONLY. LEFT UPPER ARM PICC LINE,TPN AT 60CC/H AND IVF RUNNING AT 30CC/H.WITH FLEXI SEAL,GREENISH COLOR WATERY STOOLS.REYNOSO DRAINING TO WILMAN URINE. G TUBE CLAMPED.FOR SURGERY TODAY.CONTACT ISOLATION PRECAUTION RENDERED.SAFETY MEASURES RENDERED.
[2019-03-22] MEDS: ENOXAPARIN SODIUM 40 MG/0.4 ML SYRINGE SUBCUT SCH (09:00)
--- NOTE | 2019-03-22 09:30 | NUR ---
RN ROUNDS: WITH SAME VENT SETTINGS,PATIENT TOLERATED WELL. TPN/IVF ON GOING, IN PLACE. FLEXI SEAL DRAINING TO LARGE AMOUNT OF GREENISH LOOSE STOOLS. REYNOSO IN PLACE. CONTINUE TO MONITOR. WAITING FOR SURGERY THIS AFTERNOON ORDERED.
[2019-03-22] MEDS: PANTOPRAZOLE SODIUM 40 MG/VIAL (PROTONIX) IVP SCH ×2 (09:33→22:36)
[2019-03-22] MEDS: methylPREDNISolone SOD SUCC 40 MG/ML VIAL IVP SCH (09:33)
[2019-03-22] MEDS: NYSTATIN 30 GM TOPICAL CREAM TP SCH ×2 (09:42→22:36)
[2019-03-22] MEDS: BALSAM PERU/CASTOR OIL 60 GM OINT...G. TP SCH (09:44)
[2019-03-22] MEDS: 0.45% NACL 1,000 ML IV SCH (11:30)
--- NOTE | 2019-03-22 12:04 | NUR ---
BLOOD SUGAR: BLOOD SUGAR OF 162MG/DL,HUMULIN R 2 UNITS SUBQ GIVEN PER SLIDING SCALE. NO PROBLEM.
--- NOTE | 2019-03-22 15:30 | NUR ---
WOUND CARE: CLEANSE NS SACRAL AND RIGHT BUTTOCKS,PAT DRY.APPLIED VENELEX APPOINTMENT TO WOUND BED,SURE PREP TO CHAYA WOUND AREA,COVERED WITH FOAM DRESSING.
--- NOTE | 2019-03-22 16:34 | NUR ---
Nutrition F/U RD reviewed pt's current EMR record including diet Hx, physician notes, nursing notes, pertinent labs/meds/procedures, care trends, and care activity. Admission Dx: Bowel obstruction PMH: colitis, S/P GT and tracheostomy; found w/ Acute Bowel Obstruction, Chronic Respiratory Failure, Paroxysmal Atrial Fibrillation, Anemia, CHF, Dementia, Stage IV Decubitus Ulcer of coccyx, Colon mass per MD notes. Current Diet Order/Nutrition Support: NPO x3 days + TPN D50%, AA8.5% at 60 ml/hr, IL20% at 10 ml/hr via central line Subjective Info: Pt seen resting in bed, +trach to vent, w/ TPN infusing as per pharmacy/physician order. Per RN, pt has been tolerating TPN well, and plans for Sx today -- exploratory laparotomy, diverting colostomy. Ht: 66"/5'6" Wt: 166#/75 kg IBW: 142#/65 kg %IBW: 117 BMI: 26.8 kg/m2 (normal, appropriate for geriatric age) NEW Estimated Energy Expenditure (kcals/day) 6530-5373 kcla/day (MSJ x 1.2 x 1.5 for wound healing) Estimated Protein Required (g/day) 98-130 gm/day (1.5-2 gmkg IBW for wound healing) Estimated Fluid Required (l/day) Per MD (CHF) Problem/Etiology/Signs/Symptoms Inadequate protein-calorie intake r/t current TPN infusion AEB TPN intake meeting <70% of est calories and <45% of est protein needs. *ongoing Increased protein needs r/t skin integrity AEB presence of Stage IV Decubitus ulcer of coccyx. *ongoing Expected Outcomes/Goals Monitor TPN tolerance and intake w/ goal of pt meeting at least 75% of estimated nutritional needs, labs trending WNL, normal GI function, skin integrity/wt maintenance. Dietitian Recommendations * Recommend continuing NPO * Recommend TPN D50%, AA10% at 60 ml/hr (goal rate), IL20% at 5 ml/hr via central line Provides: 1752 kcal/day, 72 gm protein/day, 1560 ml total volume/day, and GIR 3.3 gm CHO/kg/min Meets: 105% of lower end of estimated caloric needs and 73% of lower end of estimated protein needs * Continue MVI w/ minerals for wound healing Follow Up High Risk: F/U in 2-3days
--- NOTE | 2019-03-22 16:46 | NUR ---
Dietitian Recommendations * Recommend continuing NPO * Recommend TPN D50%, AA10% at 60 ml/hr (goal rate), IL20% at 5 ml/hr via central line Provides: 1752 kcal/day, 72 gm protein/day, 1560 ml total volume/day, and GIR 3.3 gm CHO/kg/min Meets: 105% of lower end of estimated caloric needs and 73% of lower end of estimated protein needs * Continue MVI w/ minerals for wound healing LP, RD Please refer to Nutrition F/U for details.
--- NOTE | 2019-03-22 17:00 | NUR ---
FLEXI SEAL CHANGE: CHANGED FLEXI SEAL BY INFLATING 45ML STERILE WATER. NOT ABLE TO IRRIGATE DUE TO, NO SYRINGE WOUND FIT THE PORT.WILL ENDORSED TO INCOMING STAFF.
--- NOTE | 2019-03-22 17:18 | NUR ---
BLOOD SUGAR: BLOOD UAFCM=736MZ/DL,HUMULIN R 4 UNITS SUBQ GIVEN PER SLIDING SCALE.NO PROBLEM.
--- NOTE | 2019-03-22 17:50 | NUR ---
TO OR: OR STAFF MAGDA,HAIRSPRING II INSPECTOR PATIENT TO OR PER SHANTA.PATIENT A VENT DEPENDENT.ACCOMPANIED BY RT IN STABLE CONDITION ,DID MANUAL BAGGING DURING TRANSPORT.
--- NOTE | 2019-03-22 17:55 | NUR ---
BLOOD SUGAR: BLOOD SUGAR TAKEN,WITH INSULIN COVERAGE GIVEN PER SLIDING SCALE.NO PROBLEM. Addendum: 03/22/19 at 1816 by Shanti Sandoval RN WRONG TIME: CORRECT TIME FOR BLOOD SUGAR WAS 1740
--- NOTE | 2019-03-22 19:44 | NUR ---
Opening Note Received Pt from OR, report received from NIDHI Butler. Pt placed to ekg monitor. Pt is alert, and able to track, but unable to follow commands. Pt nonverbal. VSS. A-fib on the monitor, uncontrolled, HR in the 100-120s. Trach to vent, settings: AC 12, FIO2 30%, TV 450, PEEP 5. No s/s of distress noted. Pt has HEATHER PICC line in place. IV site C/D/I. G-tube clamped in place, dressing is C/D/I. Colostomy in pace, no drainage noted. Flexiseal in place, no drainage noted. Pt has Schofield catheter draining yellow/ranjan urine to gravity. No fever noted, Pt showing no s/s of pain at this time. Bed locked in lowest position, call light in reach and safety precautions in place. Will continue to monitor.
--- NOTE | 2019-03-22 20:25 | NUR ---
Dr. Talbot at bedside examining Pt. Will carry orders as ordered.
[2019-03-22] MEDS ORDERED: SODIUM ACETATE IV SCH ×10 (21:00)
[2019-03-22] MEDS ORDERED: K PHOS IV SCH ×10 (21:00)
[2019-03-22] MEDS ORDERED: [UNRECOGNIZED DRUG - OTHER] IV SCH ×10 (21:00)
[2019-03-22] MEDS ORDERED: POTASSIUM ACETATE IV SCH ×10 (21:00)
[2019-03-22] MEDS ORDERED: TPN CENTRAL IV SCH ×10 (21:00)
[2019-03-22] MEDS: NACL 0.9% 1,000 ML IV SCH (22:35)
[2019-03-23] VITALS (29 sets, daily range): BP systolic 110–144
--- NOTE | 2019-03-23 01:05 | NUR ---
RN Rounds Pt in bed resting comfortably. VSS, w/ HR remaining elevated, Pt is A-fib. Leakage noted from Colostomy bag. Bag changed and Pt cleaned and changed. Tolerated well. Will continue to monitor. Addendum: 03/23/19 at 0445 by Grayson Shah RN Ileostomy Bag, not colostomy
[2019-03-23] MEDS: LevALBUTEROL HCL 1.25 MG/0.5 ML *CONC.* VIAL.NEB (XOPENEX CONC.) INH SCH ×4 (02:01→20:43)
--- NOTE | 2019-03-23 02:30 | NUR ---
Ileostomy Ileostomy bag leakage noted again. Bag changed, Pt cleaned and linens changed. Will continue to monitor for leakage.
--- NOTE | 2019-03-23 04:25 | NUR ---
RN Rounds Pt in bed asleep. VSS. Ileostomy bag no longer leakage, emptied, and resealed. Pt tolerating IVF and TPN. No s/s of distress noted. Will continue to monitor.
[2019-03-23] MEDS: MEROPENEM 500 MG in NS 50 ML IV SCH ×3 (05:25→22:28)
[2019-03-23] MEDS: METOPROLOL TARTRATE 5 MG/5 ML VIAL IVP SCH ×3 (05:26→17:33)
--- NOTE | 2019-03-23 06:22 | NUR ---
Dr Larsen exchange notified of consult.talked to Marquis.
[2019-03-23 06:40] LABS: ANION GAP 9 (5-15); CALCIUM 7.6 mg/dL (8.4-11.0); CHLORIDE 109 mmol/L (98-107); CREATININE 0.49 mg/dL (0.55-1.30); GLUCOSE 139 mg/dL (70-99); PHOSPHORUS 2.4 mg/dL (2.7-4.5); POTASSIUM 4.1 mmol/L (3.5-5.1); SODIUM SERUM 143 mmol/L (136-145); UREA NITROGEN, BLOOD 19 mg/dL (8-21)
--- NOTE | 2019-03-23 06:52 | NUR ---
Closing Note Pt in bed asleep. A-fib on the monitor, uncontrolled, HR in the 100-120s, not sustained. Pt has HEATHER PICC line in place. IVF and TPN infusing. Pt tolerating well. Pt has g-tube in place, clamped. Pt has ileostomy in place. Bag was leaking again, so bag was changed and linens changed. Pt tolerated well. No s/s of leakage noted. Pt has whitlock catheter in place. Pt has flexiseal in place as well. NO leakage noted. Will endorse to oncoming RN.
--- NOTE | 2019-03-23 07:26 | NUR ---
Endorsement Report given to oncoming RN at bedside via SBAR approach.
--- NOTE | 2019-03-23 07:35 | NUR ---
Opening Note Patient report received via SBAR communication from endorsing nurse NIDHI Galicia
[2019-03-23] MEDS: NYSTATIN 30 GM TOPICAL CREAM TP SCH ×2 (08:04→22:26)
[2019-03-23] MEDS: PANTOPRAZOLE SODIUM 40 MG/VIAL (PROTONIX) IVP SCH ×2 (08:05→22:26)
[2019-03-23] MEDS: methylPREDNISolone SOD SUCC 40 MG/ML VIAL IVP SCH (08:05)
[2019-03-23] MEDS: BALSAM PERU/CASTOR OIL 60 GM OINT...G. TP SCH (08:05)
[2019-03-23] MEDS: ENOXAPARIN SODIUM 40 MG/0.4 ML SYRINGE SUBCUT SCH (08:08)
--- NOTE | 2019-03-23 09:15 | NUR ---
MD Round Dr. Miller at bedside assessing patient, MD stopped 0.45 NS and continued 0.9 NS.
[2019-03-23] MEDS: DILTIAZEM HCL 25 MG/5 ML VIAL IVP PRN ×2 (09:24→22:25)
[2019-03-23 11:25] LABS: BASOPHILS % (AUTO) 0.2 % (0.0-2.0); HEMATOCRIT 31.7 % (36-54); HEMOGLOBIN 10.2 g/dL (14.0-18.0); LYMPHOCYTES # (AUTO) 1.8 K/uL (1.0-5.5); LYMPHOCYTES % (AUTO) 7.7 % (20.5-51.5); MEAN CORPUSCULAR HEMOGLOBIN 30 pg (27-31); MEAN CORPUSCULAR HGB CONC 32 % (32-36); MEAN CORPUSCULAR VOLUME 94 fL (79.0-98.0); MONOCYTES # (AUTO) 0.9 K/uL (0.0-1.0); MONOCYTES % (AUTO) 3.7 % (1.7-9.3); NEUTROPHILS # (AUTO) 21.3 K/uL (1.8-7.7); NEUTROPHILS % (AUTO) 88.4 % (40.0-70.0); PLATELET COUNT (AUTO) 428 K/uL (130-430); RED BLOOD CELL COUNT(AUTO) 3.38 MIL/uL (4.2-6.2); RED CELL DISTRIBUTION WIDTH 19.3 % (9.0-15.0); WHITE BLOOD COUNT (AUTO) 24.1 K/uL (4.8-10.8)
[2019-03-23] MEDS: NACL 0.9% 1,000 ML IV SCH (11:56)
--- NOTE | 2019-03-23 15:00 | NUR ---
Round Dr. Batres at bedside assessing patient, physician entered orders
--- NOTE | 2019-03-23 17:00 | NUR ---
PT TRANSFERRED Report given to NIDHI Spangler at bedside. Patient transferred to Room 122A via hospital bed on equipment monitor phototypesetting, following ACLS protocols, RN and RT accompanied patient during transfer. Patient tolerated transfer well, in no distress. All belongings and medications sent with patient.
--- NOTE | 2019-03-23 17:20 | NUR ---
Notes- Received pt from ICU, open his eyes, non verbal. Trach connected to vent, tolerating well. dressing on the abdomen is dry and intact, GT clamped. will start feeding once feeding is here. has ileostomy on the right side. on TPN. whitlock catheter and recatl tube. No acute distress noted. will monitor.
[2019-03-23] MEDS: INSULIN REGULAR, HUMAN 100 UNITS/ML, 10 ML VIAL (humuLIN R) SUBCUT PRN (17:31)
--- NOTE | 2019-03-23 17:40 | NUR ---
Notes- Dr. hough at bedside, talking with family.
--- NOTE | 2019-03-23 18:28 | NUR ---
MD rounds Seen by Dr. Larsen at bedside. talk with family.
--- NOTE | 2019-03-23 18:33 | NUR ---
Feeding started at 10cc/hr as ordered. Will endorse.
--- NOTE | 2019-03-23 19:10 | NUR ---
OPENING NOTES PATIENT AWAKE. PATIENT ON MECHANICAL VENTILATOR, OPERATING WELL, SETTINGS PER RT. NO SIGNS OF RESPIRATORY DISTRESS AND DISCOMFORT NOTED. HOB RAISED 30 DEGREES. G-TUBE NOTED, WITH DRY AND CLEAN DRESSING. IVF AND TPN INFUSING WELL, PATENCY NOTED. WITH ILEOSTOMY, OUTPUT NOTED. RECTAL TUBE NOTED, REYNOSO CATHETER ATTACHED PROPERLY DRAINING BY GRAVITY. CALL LIGHT WITHIN REACH. SAFETY PRECAUTIONS IN PLACE. BED LOCKED AND LOWEST POSITION. WILL CONTINUE TO MONITOR PATIENT.
[2019-03-23] MEDS ORDERED: TPN CENTRAL IV SCH ×10 (21:00)
[2019-03-23] MEDS ORDERED: SODIUM ACETATE IV SCH ×10 (21:00)
[2019-03-23] MEDS ORDERED: [UNRECOGNIZED DRUG - OTHER] IV SCH ×10 (21:00)
[2019-03-23] MEDS ORDERED: POTASSIUM ACETATE IV SCH ×10 (21:00)
[2019-03-23] MEDS ORDERED: K PHOS IV SCH ×10 (21:00)
--- NOTE | 2019-03-23 22:28 | NUR ---
MED PASS/ New BAG OF TPN Due medication given at this time. Patient tolerated well. No signs of respiratory distress and discomfort noted. IVF's and TPN hung at this time. Safety precautions in place. Will continue to monitor patient.
[2019-03-24] VITALS: BP_SYST 129
--- NOTE | 2019-03-24 | NUR ---
BS =141 Blood sugar checked at this time. No coverage needed. Patient has no signs of respiratory distress and discomfort noted. Breathing even and unlabored. Safety precautions in place. Will continue to monitor patient.
[2019-03-24] MEDS: METOPROLOL TARTRATE 5 MG/5 ML VIAL IVP SCH ×4 (00:02→17:58)
--- NOTE | 2019-03-24 01:59 | NUR ---
RN ROUNDS PATIENT ASLEEP AT THIS TIME, IVF INFUSING WELL. REYNOSO CATHETER DRAINING BY GRAVITY. G-TUBE INFUSING WELL. MECHANICAL VENTILATOR OPERATING WELL. NO SIGNS OF RESPIRATORY DISTRESS AND DISCOMFORT NOTED. SAFETY PRECAUTIONS IN PLACE. WILL CONTINUE TO MONITOR PATIENT.
[2019-03-24] MEDS: LevALBUTEROL HCL 1.25 MG/0.5 ML *CONC.* VIAL.NEB (XOPENEX CONC.) INH SCH ×2 (02:00→19:40)
[2019-03-24] MEDS: DILTIAZEM HCL 25 MG/5 ML VIAL IVP PRN (04:39)
[2019-03-24] MEDS: MEROPENEM 500 MG in NS 50 ML IV SCH ×3 (05:22→22:46)
[2019-03-24] MEDS: INSULIN REGULAR, HUMAN 100 UNITS/ML, 10 ML VIAL (humuLIN R) SUBCUT PRN ×4 (05:29→18:00)
--- NOTE | 2019-03-24 06:35 | NUR ---
CLOSING NOTES PATIENT IS AWAKE AT THIS TIME. NO SIGNS OF RESPIRATORY DISTRESS AND DISCOMFORT NOTED. PATIENT ON MECHANICAL VENTILATOR OPERATING WELL. SETTING KEPT THROUGHOUT THE SHIFT. ON CONTACT PRECAUTIONS MAINTAINED THROUGHOUT THE SHIFT. IVF AND TPN INFUSING WELL, PATENCY NOTED. PICC LINE, NO REDNESS AND INFILTRATION NOTED, COVERED WITH CLEAN AND DRY DRESSING. G-TUBE INFUSING WELL, REYNOSO CATHETER, ATTACHED AND SECURED, DRAINING BY GRAVITY. RECTAL TUBE, ATTACHED AND DRAINING BY GRAVITY. ILEOSTOMY DRAINING WELL. SAFETY PRECAUTIONS IN PLACE. BED LOCKED AND AT LOWEST POSITION. ALL NEEDS MET THROUGHOUT THE SHIFT. WILL CONTINUE TO MONITOR UNTIL ENDORSED TO ONCOMING SHIFT NURSE.
[2019-03-24 06:38] LABS: BASOPHILS % (AUTO) 0.1 % (0.0-2.0); EOSINOPHILS # (AUTO) 0.1 K/uL (0.0-0.4); EOSINOPHILS % (AUTO) 0.2 % (0.0-4.0); HEMATOCRIT 29.8 % (36-54); HEMOGLOBIN 9.5 g/dL (14.0-18.0); LYMPHOCYTES # (AUTO) 2.7 K/uL (1.0-5.5); LYMPHOCYTES % (AUTO) 11.9 % (20.5-51.5); MEAN CORPUSCULAR HEMOGLOBIN 30 pg (27-31); MEAN CORPUSCULAR HGB CONC 32 % (32-36); MEAN CORPUSCULAR VOLUME 95 fL (79.0-98.0); MONOCYTES % (AUTO) 4.4 % (1.7-9.3); NEUTROPHILS # (AUTO) 18.8 K/uL (1.8-7.7); NEUTROPHILS % (AUTO) 83.4 % (40.0-70.0); PLATELET COUNT (AUTO) 352 K/uL (130-430); RED BLOOD CELL COUNT(AUTO) 3.14 MIL/uL (4.2-6.2); WHITE BLOOD COUNT (AUTO) 22.6 K/uL (4.8-10.8)
[2019-03-24 07:10] LABS: ALANINE AMINOTRANSFERASE 127 U/L (12-78); ALBUMIN 1.1 g/dL (3.4-4.8); ANION GAP 10 (5-15); ASPARTATE AMINOTRANSFERASE 190 U/L (10-37); CALCIUM 7.5 mg/dL (8.4-11.0); CHLORIDE 108 mmol/L (98-107); CREATININE 0.52 mg/dL (0.55-1.30); GLUCOSE 161 mg/dL (70-99); PHOSPHORUS 2.3 mg/dL (2.7-4.5); POTASSIUM 3.8 mmol/L (3.5-5.1); SODIUM SERUM 143 mmol/L (136-145); TOTAL BILIRUBIN 1.4 mg/dL (0.0-1.0); TRIGLYCERIDES 209 mg/dL (30-150); UREA NITROGEN, BLOOD 20 mg/dL (8-21)
--- NOTE | 2019-03-24 07:30 | NUR ---
Opening Notes Patient received lying in bed with HOB elevated, alert, awake non-verbal, no moaning or grimacing noted. IVF infusing well, PICC line intact and in place, colostomy in place, G-tube intact and in place. ON trach to vent total volume at 450, fi02 at 30%, peep at 5, AC at 12, well tolerated, no sob, no acute distress, no congestion. Attended to needs and anticipated. Call light within the reach. Will continue to monitor.
[2019-03-24 08:00] VITALS: BP_SYST 126
--- NOTE | 2019-03-24 09:00 | NUR ---
RN ROUNDS Patient alert and awake, non-verbal, no sob, no acute distress, respiration even and unlabored. Call light within the reach, contact isolation observed.
[2019-03-24] MEDS: ENOXAPARIN SODIUM 40 MG/0.4 ML SYRINGE SUBCUT SCH (09:41)
[2019-03-24] MEDS: PANTOPRAZOLE SODIUM 40 MG/VIAL (PROTONIX) IVP SCH ×2 (09:42→22:47)
[2019-03-24] MEDS: methylPREDNISolone SOD SUCC 40 MG/ML VIAL IVP SCH (09:42)
[2019-03-24] MEDS: NYSTATIN 30 GM TOPICAL CREAM TP SCH ×2 (09:45→23:03)
[2019-03-24] MEDS: BALSAM PERU/CASTOR OIL 60 GM OINT...G. TP SCH (09:45)
[2019-03-24] MEDS: NACL 0.9% 1,000 ML IV SCH (11:30)
--- NOTE | 2019-03-24 11:30 | NUR ---
Dr. Florian Rounds Seen and examined by MD, will follow-up for any new orders.
--- NOTE | 2019-03-24 12:30 | NUR ---
Dr. Real Rounds Seen and examined by MD, will follow-up for any new orders.
[2019-03-24 12:53] VITALS: BP_SYST 137
--- NOTE | 2019-03-24 14:00 | NUR ---
RN ROUNDS Patient resting well, eyes closed but opens his eyes with verbal and tactile stimuli. Call light within the reach.
--- NOTE | 2019-03-24 16:00 | NUR ---
Dr. Harp Rounds Seen and examined byMD, will follow-up for any new orders.
[2019-03-24 17:13] VITALS: BP_SYST 121
--- NOTE | 2019-03-24 18:30 | NUR ---
Closing Notes Patient remain to be alert, awake and non-verbal, no moaning or grimacing noted, On trach to vent, well tolerated. Daughter at bedside, colostomy intact and in place, IVF infusing well, including TPN. G-tube intact and in place. Schofield catheter intact and in place, draining yellow urine to urine bag via gravity. Call light within the reach. Kept the head of the bed elevated. Will endorse to the next shift.
--- NOTE | 2019-03-24 19:30 | NUR ---
CHANGE OF SHIFT; pt. awake, nonverbal with trach to vent. pt. daughter at bedside, observed on contact isolation for MDRO of sputum. IV TPN infusing via PICC line on left upper arm. on safety precautions, bed alarm on.will reassess later.
--- NOTE | 2019-03-24 20:00 | NUR ---
NOTES: VS checked. due hs care done with TERRITORY SALES EXECUTIVE. pt. awake, moving left arm a lot. with generalized edema, jeniffer. both upper and lower extremities. IV TPN via PICC line on left upper arm @ 60 cc/hr and NS @ 30cc/hr. pt. on trach to vent ,settings @ 30% FIO2, TV 45o Peep 5 AC rate 12. on potline monitor and shows sinus tach. S/P Explor lap/lysis of adhesion/liver biopsy/mesenteric mass with ileostomy, colostomy bag changed, leaking with dark liquid greenish drainage, abdomen distended, dressing intact. on g tube feeding with Glucerna 1.5 @ 10 cc/hr. no residual. pressure sore on sacral area with dressing, air mattress on.
[2019-03-24] MEDS ORDERED: POTASSIUM ACETATE IV SCH ×10 (21:00)
[2019-03-24] MEDS ORDERED: K PHOS IV SCH ×10 (21:00)
[2019-03-24] MEDS ORDERED: [UNRECOGNIZED DRUG - OTHER] IV SCH ×10 (21:00)
[2019-03-24] MEDS ORDERED: TPN CENTRAL IV SCH ×10 (21:00)
[2019-03-24] MEDS ORDERED: SODIUM ACETATE IV SCH ×10 (21:00)
--- NOTE | 2019-03-24 21:30 | NUR ---
NOTES: repositioned. noted some sounds, trying to grind his teeth. flexi-seal in place rectally.
--- NOTE | 2019-03-24 22:00 | NUR ---
NOTES: new TPN bag changed. due med given per g tube. lily dozing on and off. condition observed.
[2019-03-24] MEDS: ENOXAPARIN SODIUM 60 MG/0.6 ML SYRINGE SUBCUT SCH (22:48)
[2019-03-25] MEDS: METOPROLOL TARTRATE 5 MG/5 ML VIAL IVP SCH ×5 (00:24→23:40)
[2019-03-25] MEDS: INSULIN REGULAR, HUMAN 100 UNITS/ML, 10 ML VIAL (humuLIN R) SUBCUT PRN ×4 (00:29→23:44)
--- NOTE | 2019-03-25 00:30 | NUR ---
NOTES: HR @ 130. IV Lopressor given as ordered. repositioned. condition unchanged. contact isolation observed.
[2019-03-25] MEDS: LevALBUTEROL HCL 1.25 MG/0.5 ML *CONC.* VIAL.NEB (XOPENEX CONC.) INH SCH ×4 (00:55→20:02)
--- NOTE | 2019-03-25 02:30 | NUR ---
NOTES: condition observed. repositioned. continue to monitor.
[2019-03-25] MEDS: DILTIAZEM HCL 25 MG/5 ML VIAL IVP PRN (03:53)
--- NOTE | 2019-03-25 03:57 | NUR ---
NOTES: HR sustain @ 130-150. IV cardizem 5 mg given slowly. pt. pretty awake, oral care done and suction orally, called RT to check trach for any air leak on the cuff. pt. repositioned. ileostomy/colostomy bag changed , leaking again.
[2019-03-25 04:50] VITALS: BP_SYST 131
[2019-03-25 05:42] LABS: ALANINE AMINOTRANSFERASE 120 U/L (12-78); ANION GAP 8 (5-15); ASPARTATE AMINOTRANSFERASE 158 U/L (10-37); CHLORIDE 107 mmol/L (98-107); CREATININE 0.43 mg/dL (0.55-1.30); GLUCOSE 217 mg/dL (70-99); PHOSPHORUS 2.2 mg/dL (2.7-4.5); POTASSIUM 3.6 mmol/L (3.5-5.1); SODIUM SERUM 139 mmol/L (136-145); TOTAL BILIRUBIN 1.2 mg/dL (0.0-1.0); UREA NITROGEN, BLOOD 24 mg/dL (8-21)
[2019-03-25 05:49] LABS: CALCIUM 6.5 mg/dL (8.4-11.0)
--- NOTE | 2019-03-25 06:00 | NUR ---
notes: SAME SETTINGS ON THE VENT. TRACH TO VENT. G TUBE FEED , IV TPN AT SAME RATE. ILEOSTOMY/COLOSTOMY BAG INTACT. REMAIN ATRIAL FIB HR ABOVE 100. IV LOPRESSOR GIVEN ORDERED. Addendum: 03/25/19 at 0749 by Maine Martin RN late entry 0647 lab called for Ca level of 6.5. will call DR. Narinder OLIVER senior construction manager.
[2019-03-25 06:25] LABS: BASOPHILS % (AUTO) 0.2 % (0.0-2.0); EOSINOPHILS % (AUTO) 0.1 % (0.0-4.0); HEMATOCRIT 29.9 % (36-54); HEMOGLOBIN 9.4 g/dL (14.0-18.0); LYMPHOCYTES % (AUTO) 9.6 % (20.5-51.5); MEAN CORPUSCULAR HEMOGLOBIN 30 pg (27-31); MEAN CORPUSCULAR HGB CONC 32 % (32-36); MEAN CORPUSCULAR VOLUME 95 fL (79.0-98.0); MONOCYTES # (AUTO) 0.8 K/uL (0.0-1.0); MONOCYTES % (AUTO) 3.8 % (1.7-9.3); NEUTROPHILS # (AUTO) 17.9 K/uL (1.8-7.7); NEUTROPHILS % (AUTO) 86.3 % (40.0-70.0); PLATELET COUNT (AUTO) 298 K/uL (130-430); RED BLOOD CELL COUNT(AUTO) 3.14 MIL/uL (4.2-6.2); RED CELL DISTRIBUTION WIDTH 20.9 % (9.0-15.0); WHITE BLOOD COUNT (AUTO) 20.8 K/uL (4.8-10.8)
--- NOTE | 2019-03-25 06:30 | NUR ---
CLOSING NOTES; pt. condition guarded. IV.g tube, whitlock cath intact. on fal risk precautions. trach to vent. for further care and assist/ observed contact isolation. will endorse to day shift.
--- NOTE | 2019-03-25 07:30 | NUR ---
endorsed to day shift on Ca level, asked insurance and benefits clerk to call Dr. Barcenas convenience recycle center tech for Dr. Talbot.
--- NOTE | 2019-03-25 07:30 | NUR ---
Opening Notes Patient received alert, awake and non verbal, on trach to vent, respiration even and unlabored. No moaning or grimacing noted. IVF and TPN infusing well. Schofield catheter in place and intact, draining yellow urine to urine bag via gravity. G-tube in place and intact, surgical site with clean, dry and intact dressing, no bleeding noted. Call light within the reach. Will continue to monitor.
--- NOTE | 2019-03-25 07:45 | NUR ---
ATTENDING MD DISHWASHER BUSSER DR BRYSON WAS CALLED RE; LOW CA LEVEL. SPOKE TO ZEYAD
--- NOTE | 2019-03-25 08:12 | NUR ---
Reported low Calcium level to Dr. Anival OLIVER at unit, notified regarding low calcium level, MD just wanted to notify pharmacy to adjust Calcium to TPN, called pharmacy and notified regarding MD order.
[2019-03-25] MEDS: NACL 0.9% 1,000 ML IV SCH (08:16)
[2019-03-25] MEDS ORDERED: CALCIUM GLUCONATE 1 GM in NS 100 ML IV ONE (09:00)
--- NOTE | 2019-03-25 09:30 | NUR ---
Dr. Florian rounds seen and examined by MD, will follow-up orders.
[2019-03-25] MEDS: ENOXAPARIN SODIUM 60 MG/0.6 ML SYRINGE SUBCUT SCH ×2 (09:38→21:52)
[2019-03-25] MEDS: methylPREDNISolone SOD SUCC 40 MG/ML VIAL IVP SCH (09:38)
[2019-03-25] MEDS: PANTOPRAZOLE SODIUM 40 MG/VIAL (PROTONIX) IVP SCH ×2 (09:39→21:42)
[2019-03-25] MEDS: NYSTATIN 30 GM TOPICAL CREAM TP SCH ×2 (09:40→21:47)
[2019-03-25] MEDS: BALSAM PERU/CASTOR OIL 60 GM OINT...G. TP SCH (09:40)
--- NOTE | 2019-03-25 11:30 | NUR ---
RN ROUNDS Patient remain to be alert, awake, non -verbal, trach to vent well tolerated, no moaning or grimacing noted. IVF and TPN infusing well. Call light within the reach.
[2019-03-25 12:04] VITALS: BP_SYST 108
--- NOTE | 2019-03-25 14:30 | NUR ---
Dr. Mabry rounds Seen and examined by MD , will follow-up for any new orders.
--- NOTE | 2019-03-25 14:52 | NUR ---
Nutrition Follow Up RD reviewed pt's current EMR including diet hx, physician notes, nursing notes, pertinent labs/meds/procedures, care trends and care activity. Admitting Diagnosis: Diverting Colostomy Medical History Comment: Pt admitted with acute bowel obstruction, now s/p surgery per physician note. 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 Current Diet Order/Nutrition Support: Glucerna 1.5 at 10ml/hr w/ 60ml free water flush Q6 and TPN D50%, AA10% at 60 ml/hr (goal rate), IL20% at 5 ml/hr via central line TPN Provides: 1752 kcal/day, 72 gm protein/day, 1560 ml total volume/day, and GIR 3.3 gm Tube Feeding Provides: 360kcal, 20gPro, and 422ml of free water Total Provides: 2112kcal and 92gPro Meets: 101% of upper end of estimated caloric needs and 94% of lower end of estimated protein needs Subjective Information: Pt being seen by MD w/ RN and EQUIPMENT PROCESSER STORAGE attending. Current TPN and TF adequate to meet nutrition needs. NEW Estimated Energy Expenditure (kcals/day) 9971-7657 kcla/day (MSJ x 1.2 x 1.5 for wound healing) Estimated Protein Required (g/day) 98-130 gm/day (1.5-2 gmkg IBW for wound healing) Estimated Fluid Required (l/day) Per MD (CHF) Problem/Etiology/Signs/Symptoms Inadequate protein-calorie intake r/t current TPN infusion AEB TPN intake meeting <70% of est calories and <45% of est protein needs. *ongoing Increased protein needs r/t skin integrity AEB presence of Stage IV Decubitus ulcer of coccyx. *ongoing Expected Outcomes/Goals Monitor TPN tolerance and intake w/ goal of pt meeting at least 75% of estimated nutritional needs, labs trending WNL, normal GI function, skin integrity/wt maintenance. Dietitian Recommendations *Continue Glucerna 1.5 at 10ml/hr w/ 60ml free water flush Q6 and TPN D50%, AA10% at 60 ml/hr (goal rate), IL20% at 5 ml/hr via central line *Total Provides: 2112kcal and 92gPro *Meets: 101% of lower end of estimated caloric needs and 94% of lower end of estimated protein needs *Continue MVI w/ minerals for wound healing Follow Up High Risk: F/U in 2-3days
--- NOTE | 2019-03-25 15:02 | NUR ---
Dietitian Recommendations *Continue Glucerna 1.5 at 10ml/hr w/ 60ml free water flush Q6 and TPN D50%, AA10% at 60 ml/hr (goal rate), IL20% at 5 ml/hr via central line *Total Provides: 2112kcal and 92gPro *Meets: 101% of lower end of estimated caloric needs and 94% of lower end of estimated protein needs *Continue MVI w/ minerals for wound healing Please see Nutrition Follow Up for further details. LT, RD
--- NOTE | 2019-03-25 15:10 | NUR ---
Dr. Miller rounds Seen and examined by MD, will follow-up for any new orders.
[2019-03-25 16:37] VITALS: BP_SYST 117
--- NOTE | 2019-03-25 17:30 | NUR ---
RN ROUNDS Patient remain to be alert, awake non-verbal, no moaning or grimacing noted. Respiration even and unlabored. Call light within the reach.
--- NOTE | 2019-03-25 19:20 | NUR ---
Closing Notes Patient remain alert, awake and non verbal, on trach to vent, respiration even and unlabored. No moaning or grimacing noted. IVF and TPN infusing well.G-tube in place and intact, surgical site with clean, dry and intact dressing, no bleeding noted. Schofield catheter in place and intact, draining yellow urine to urine bag via gravity. Call light within the reach. Will endorse to the next shift.
--- NOTE | 2019-03-25 19:30 | NUR ---
CHANGE OF SHIFT; pt. awake but non verbal, on vent via trach. on contact isolation history of MDRO sputum. IV TPN and NS infusing. G tube feed continuous. no distress. will assess later.
[2019-03-25 20:30] VITALS: BP_SYST 131
--- NOTE | 2019-03-25 20:30 | NUR ---
NOTES: pt. repositioned, HOB elevated. G tube site patent, no residual, continue on Glucerna 1.5 @ 10 cc/hr. IV TPN @ 60 cc/hr and NS @ 30 cc/hr via PICC tobin grant left upper arm. moves left arm a lot. opens eyes when name called. pt. has # 8 portex trach via vent with settings @ 30% FIO2 TV 450 PEEP 5 AC rate 12 with spontaneous breathing. pt. with generalized edema jeniffer. upper and lower extremities, both legs elevated. cardia monitor shows atrial fib with RVR, been getting IV Lopressor q 6 hrs. pt. with whitlock cath to OSD and flexiseal rectally. abdomen distended with dressing intact and colostomy bag on rt. side of abdomen. wound on sacral area with dressing. on fall risk precautions.
[2019-03-25] MEDS ORDERED: SODIUM ACETATE IV SCH ×11 (21:00)
[2019-03-25] MEDS ORDERED: TPN CENTRAL IV SCH ×11 (21:00)
[2019-03-25] MEDS ORDERED: POTASSIUM ACETATE IV SCH ×11 (21:00)
[2019-03-25] MEDS ORDERED: [UNRECOGNIZED DRUG - OTHER] IV SCH ×11 (21:00)
[2019-03-25] MEDS ORDERED: K PHOS IV SCH ×11 (21:00)
--- NOTE | 2019-03-25 22:00 | NUR ---
NOTES: due meds given and changed TPN bag. pt. repositioned. pt. been dozing on and off.
[2019-03-25 23:16] VITALS: BP_SYST 154
[2019-03-25 23:40] VITALS: BP_SYST 119
--- NOTE | 2019-03-25 23:40 | NUR ---
NOTES: HR been up 130-140, IV Lopressor schedule given. BP119/80
[2019-03-26] MEDS: LevALBUTEROL HCL 1.25 MG/0.5 ML *CONC.* VIAL.NEB (XOPENEX CONC.) INH SCH ×4 (00:43→19:45)
--- NOTE | 2019-03-26 01:29 | NUR ---
NOTES: HR slowed down on 100's then went back up@ 120-130. continue to monitor.
--- NOTE | 2019-03-26 04:00 | NUR ---
NOTES: condition observed. continue to monitor. sleeping at intervals. no acute distress.
--- NOTE | 2019-03-26 05:00 | NUR ---
NOTES: complete am care done. suction via trach and by mouth, oral care done. colostomy bag leaking and changed, skin irritation around stoma, z aristides applied on reddened area. abdominal incision intact with simin. G tube site intact. abdomen remain distended. flexiseal @ 30 cc dark greenish liquid stool. Colostomy with mucoid brown stool. sacral dressing intact. rt. upper thigh, healing skin pink, z aristides applied. scrotal area swollen as well and both thighs.
[2019-03-26 06:32] LABS: ALANINE AMINOTRANSFERASE 173 U/L (12-78); ALBUMIN 1.1 g/dL (3.4-4.8); ANION GAP 7 (5-15); ASPARTATE AMINOTRANSFERASE 245 U/L (10-37); CALCIUM 7.5 mg/dL (8.4-11.0); CHLORIDE 108 mmol/L (98-107); CREATININE 0.45 mg/dL (0.55-1.30); GLUCOSE 191 mg/dL (70-99); PHOSPHORUS 2.6 mg/dL (2.7-4.5); POTASSIUM 4.3 mmol/L (3.5-5.1); SODIUM SERUM 138 mmol/L (136-145); TOTAL BILIRUBIN 1.2 mg/dL (0.0-1.0); UREA NITROGEN, BLOOD 27 mg/dL (8-21)
[2019-03-26 06:45] LABS: HEMATOCRIT 31.7 % (36-54); MEAN CORPUSCULAR HEMOGLOBIN 30 pg (27-31); MEAN CORPUSCULAR HGB CONC 32 % (32-36); MEAN CORPUSCULAR VOLUME 95 fL (79.0-98.0); PLATELET COUNT (AUTO) 328 K/uL (130-430); RED BLOOD CELL COUNT(AUTO) 3.33 MIL/uL (4.2-6.2); RED CELL DISTRIBUTION WIDTH 21.1 % (9.0-15.0); WHITE BLOOD COUNT (AUTO) 20.7 K/uL (4.8-10.8)
[2019-03-26] MEDS: METOPROLOL TARTRATE 5 MG/5 ML VIAL IVP SCH ×3 (06:50→18:26)
--- NOTE | 2019-03-26 06:54 | NUR ---
CLOSING NOTES; pt. resting and went back to sleep. condition observed, IVF infusing. due BP med given. for further care and assist. will endorse to day shift. Addendum: 03/26/19 at 0720 by Maine Martin RN wrong pt.
--- NOTE | 2019-03-26 06:55 | NUR ---
CLOSING NOTES; pt. same settings on the vent via trach. IVF anf g tube continuous. abdominal dressing and colostomy intact. on contact isolation for MDRO sputum. kept HOB elevated. flexiseal and whitlock cath intact. for further care and observation. will endorse to day shift.
--- NOTE | 2019-03-26 07:30 | NUR ---
OPENING NOTES: RECEIVED PATIENT FROM C S S REPRESENTATIVE NURSE. PATIENT IS AWAKE AND NONVERBAL LAYING DOWN IN BED. PATIENT IS ON MECHANICAL VENTILATION WITH SETTING OF RATE: 12, FIO2: 30%, TV: 450, PEEP: 5. NO SIGNS OF DISTRESS OR SHORTNESS OF BREATH NOTED. PICC LINE INTACT WITH CLEAN, DRY DRESSING AND RUNNING FLUIDS ORDERED. REYNOSO CATHETER INTACT AND DRAINING BY GRAVITY. FLEXISEAL INTACT. PATIENT IN STABLE CONDITION. SAFETY, FALL, ASPIRATION AND CONTACT PRECAUTIONS ARE IN PLACE. BED LOCKED IN LOWEST POSITION WITH CALL LIGHT IN REACH. WILL CONTINUE TO MONITOR PATIENT FOR ANY CHANGES.
[2019-03-26 07:42] LABS: BAND % (MANUAL) 4 % (0-6); BASOPHILS % (MANUAL) 0 % (0-2); EOSINOPHILS % (MANUAL) 0 % (0-7); LYMPHOCYTES % (MANUAL) 11 % (20-46); METAMYELOCYTES % 1 % (0-0); MONOCYTES % (MANUAL) 1 % (0-11); MYELOCYTES % 3 % (0-0)
[2019-03-26] MEDS: INSULIN REGULAR, HUMAN 100 UNITS/ML, 10 ML VIAL (humuLIN R) SUBCUT PRN ×3 (07:53→18:28)
[2019-03-26 08:07] VITALS: BP_SYST 130
[2019-03-26] MEDS: PANTOPRAZOLE SODIUM 40 MG/VIAL (PROTONIX) IVP SCH ×2 (08:23→20:44)
[2019-03-26] MEDS: methylPREDNISolone SOD SUCC 40 MG/ML VIAL IVP SCH (08:23)
[2019-03-26] MEDS: ENOXAPARIN SODIUM 60 MG/0.6 ML SYRINGE SUBCUT SCH (08:24)
[2019-03-26] MEDS: NYSTATIN 30 GM TOPICAL CREAM TP SCH ×2 (08:25→20:43)
[2019-03-26] MEDS: BALSAM PERU/CASTOR OIL 60 GM OINT...G. TP SCH (08:25)
[2019-03-26] MEDS: DILTIAZEM HCL 25 MG/5 ML VIAL IVP PRN ×3 (10:26→21:46)
--- NOTE | 2019-03-26 10:33 | NUR ---
RN ROUNDS/ PRN MED GIVEN: PATIENT IS AWAKE LAYING DOWN IN BED. NO PAIN NOTED USING THE FLACC SCALE. PRN CARDIZEM GIVEN FOR HEART RATE OF 150. NO SIGNS OF DISTRESS OR SHORTNESS OF BREATH NOTED. PATIENT IN STABLE CONDITION. WILL CONTINUE TO MONITOR PATIENT FOR ANY CHANGES.
[2019-03-26] MEDS: NACL 0.9% 1,000 ML IV SCH (11:57)
--- NOTE | 2019-03-26 12:05 | NUR ---
RN ROUNDS: PATIENT IS AWAKE WITH HIS EYES OPEN LAYING DOWN IN BED. NO SIGNS OF DISTRESS OR SHORTNESS OF BREATH NOTED. PATIENT IN STABLE CONDITION. WILL CONTINUE TO MONITOR PATIENT FOR ANY CHANGES.
[2019-03-26 12:33] VITALS: BP_SYST 138
--- NOTE | 2019-03-26 14:39 | NUR ---
RN ROUNDS: PATIENT IS AWAKE LAYING DOWN IN BED. PATIENT IS NONVERBAL. NO SIGNS OF DISTRESS OR SHORTNESS OF BREATH NOTED. PATIENT IN STABLE CONDITION. WILL CONTINUE TO MONITOR PATIENT FOR ANY CHANGES.
--- NOTE | 2019-03-26 16:10 | NUR ---
RN ROUNDS: PATIENT IS AWAKE IN BED BUT NONVERBAL. PATIENT IS WATCHING TELEVISION. NO SIGNS OF DISTRESS OR SHORTNESS OF BREATH NOTED. PATIENT IN STABLE CONDITION. WILL CONTINUE TO MONITOR PATIENT FOR ANY CHANGES.
[2019-03-26 16:12] VITALS: BP_SYST 130
--- NOTE | 2019-03-26 16:45 | NUR ---
Discharge Planning: DCP faxed pt referral to [facility] (f [phone] p [phone]) DCP to follow up
--- NOTE | 2019-03-26 18:42 | NUR ---
CLOSING NOTE: PATIENT IS AWAKE AND NONVERBAL LAYING DOWN IN BED. PATIENT IS ON MECHANICAL VENTILATION WITH SETTINGS OF RATE: 12, FIO2: 30%, TV: 450, PEEP: 5. NO SIGNS OF DISTRESS OR SHORTNESS OF BREATH NOTED. PICC LINE INTACT WITH CLEAN, DRY DRESSING AND RUNNING FLUIDS ORDERED. REYNOSO CATHETER INTACT AND DRAINING BY GRAVITY. FLEXISEAL INTACT. PATIENT IN STABLE CONDITION. SAFETY, FALL, ASPIRATION AND CONTACT PRECAUTIONS REMAINED IN PLACE THROUGHOUT THE SHIFT. BED LOCKED IN LOWEST POSITION WITH CALL LIGHT IN REACH. WILL ENDORSE PATIENT CARE TO ONCOMING POTATO CHIP FRYER NURSE.
[2019-03-26 20:00] VITALS: BP_SYST 111
--- NOTE | 2019-03-26 20:00 | NUR ---
ASSUMED CARE. RECEIVED AWAKE, ALERT,NON-VERBAL. AFEBRILE, NOT IN ACUTE DISTRESS. NO PAIN OR DISCOMFORT NOTED. IV FLUID NS INFUSING @ 30 ML/HR, TPN @ 60 ML/HR BOTH VIA LEFT UPPER ARM DOUBLE LUMEN PICC LINE. GLUCERNA 1.5 RUNNING AT 10 ML/HR VIA J-TUBE. HEAD OF BED ELEVATED AT LEAST 30 DEGREES AT ALL TIMES. ON MECHANICAL VENTILATOR WITH THE FOLLOWING SETTINGS: RB=082, FIO2=30% AC=12 PEEP=5. JKS6=676%. UNCONTROLLED A.FIB. AT 60'S-120'S/MINUTE ON THE MONITOR. MD'S AWARE. REYNOSO DRAINING DARK YELLOW CLEAR URINE. RECTAL TUBE DRAINING DARK BROWN COLORED LIQUID STOOLS. LEVEL IS AT 30 ML. ILEOSTOMY TO THE RLQ DRAINING MINIMAL AMOUNT OF BROWN COLORED LIQUID STOOLS. JARRED WELL COAPTATED AND OPEN TO AIR. NO SIGNS OF INFECTION NOTED. BILATERAL SCD'S IN PLACE. CONTACT ISOLATION FOR MDRO OF SPUTUM OBSERVED. WILL CONTINUE TO MONITOR. NEEDS ATTENDED.
[2019-03-26] MEDS: ENOXAPARIN SODIUM 80 MG/0.8 ML SYRINGE SUBCUT SCH (20:45)
--- NOTE | 2019-03-26 20:48 | NUR ---
NEW BAG OF TPN STARTED. ALL OTHER DUE MEDICATIONS GIVEN.
[2019-03-26] MEDS ORDERED: SODIUM ACETATE IV SCH ×11 (21:00)
[2019-03-26] MEDS ORDERED: TPN CENTRAL IV SCH ×11 (21:00)
[2019-03-26] MEDS ORDERED: [UNRECOGNIZED DRUG - OTHER] IV SCH ×11 (21:00)
[2019-03-26] MEDS ORDERED: K PHOS IV SCH ×11 (21:00)
[2019-03-26] MEDS ORDERED: POTASSIUM ACETATE IV SCH ×11 (21:00)
--- NOTE | 2019-03-26 21:00 | NUR ---
GASTRIC RESIDUAL IS MORE THAN 200. NO WATER FLUSH GIVEN AND WILL HOLD TUBE FEEDING FOR NOW. WILL RECHECK AGAIN LATER.
--- NOTE | 2019-03-26 21:46 | NUR ---
SL=706-817'S/MINUTE ON THE MONITOR. PRN DILTIAZEM 5 MG IVP GIVEN ORDERED FOR HR> 120.
[2019-03-27] VITALS (7 sets, daily range): BP systolic 98–110
--- NOTE | 2019-03-27 00:17 | NUR ---
T=97.6 BP=93/69 YD=716 RR=36 LMY0=244% PAIN=0/10. BP LOW, HR STILL 140-150'S/MINUTE. PT TACHYPNEIC AND BREATHING LABORED. WILL NOTIFY . FINGERSTICK BLOOD SUGAR GKQRN=139.
--- NOTE | 2019-03-27 00:26 | NUR ---
PAGED PAGING DR. FREEMAN FOR ORDERS
--- NOTE | 2019-03-27 00:30 | NUR ---
PAGED VIA EXCHANGE, ANSWERED RIGHT AWAY. NOTIFIED OF PT'S CONDITION. NS 500 ML BOLUS AND DIGOXIN 0.25 MG IVP X 1 ORDERED VIA TELEPHONE. MD ALSO SAID IF BP IMPROVES AFTER 1 HOUR, LOPRESSOR 5 MG IVP ORIGINALLY SCHEDULED AT 0000 MAY BE GIVEN IF SBP IS AT LEAST 100.
[2019-03-27] MEDS ORDERED: NS 500 ML IV ONE (00:31)
[2019-03-27] MEDS: INSULIN REGULAR, HUMAN 100 UNITS/ML, 10 ML VIAL (humuLIN R) SUBCUT PRN ×4 (00:41→17:26)
--- NOTE | 2019-03-27 00:41 | NUR ---
6 UNITS OF REGULAR INSULIN SQ GIVEN PER SLIDING SCALE.
[2019-03-27] MEDS: LevALBUTEROL HCL 1.25 MG/0.5 ML *CONC.* VIAL.NEB (XOPENEX CONC.) INH SCH ×4 (00:53→20:00)
[2019-03-27] MEDS ORDERED: DIGOXIN 0.5 MG/2 ML AMP IVP ONE (01:00)
--- NOTE | 2019-03-27 01:02 | NUR ---
NS 500 ML BOLUS AND DIGOXIN 0.25 MG IVP GIVEN. WILL CLOSELY MONITOR.
[2019-03-27] MEDS: METOPROLOL TARTRATE 5 MG/5 ML VIAL IVP SCH ×4 (02:30→17:31)
--- NOTE | 2019-03-27 02:30 | NUR ---
BP=98/55 QA=587. LOPRESSOR IVP NOT GIVEN. WILL RECHECK AT 0600. GASTRIC RESIDUAL STILL MORE THAN 150. WILL CONTINUE TO HOLD FEEDING.
--- NOTE | 2019-03-27 04:00 | NUR ---
ASLEEP, VITAL SIGNS BETTER. BREATHING LESS LABORED. SIDE RAILS UP CALL LIGHT WITHIN REACH. KEPT WARM AND COMFORTABLE. WILL CONTINUE TO MONITOR.
--- NOTE | 2019-03-27 06:00 | NUR ---
BP=95/55 HN=404. LOPRESSOR IVP NOT GIVEN.
[2019-03-27 06:54] LABS: ANION GAP 13 (5-15); CHLORIDE 108 mmol/L (98-107); CREATININE 1.08 mg/dL (0.55-1.30); GLUCOSE 268 mg/dL (70-99); PHOSPHORUS 6.8 mg/dL (2.7-4.5); SODIUM SERUM 139 mmol/L (136-145); UREA NITROGEN, BLOOD 39 mg/dL (8-21)
--- NOTE | 2019-03-27 07:04 | NUR ---
WAZTSQUKK=264. 4 UNITS OF REGULAR INSULIN SQ GIVEN PER SLIDING SCALE.
--- NOTE | 2019-03-27 07:20 | NUR ---
ENDORSED CARE TO MANOLO MENDEZ
[2019-03-27 07:28] LABS: CALCIUM 6.8 mg/dL (8.4-11.0); POTASSIUM 6.2 mmol/L (3.5-5.1)
--- NOTE | 2019-03-27 07:30 | NUR ---
Opening note Patient resting in bed at this time, A/ox1, awake and nonverbal. No SOB. PICC line patent intact and infusing fluids and TPN as ordered. GTube feeding held S/T residual 150ml at this time. No nausea, no vomiting noted. Ileostomy in place, no drainage. Rectal tube in place draining dark brown loose fluid. Schofield catheter in place draining yellow urine to gravity. SCD in place. On YESENIA mattress. On safety and aspiration precautions, HOB kept elevated, 3 side rails up, call light within reach. patient in stable condition. Will continue to monitor.
[2019-03-27] MEDS ORDERED: SODIUM POLYSTYRENE SULFONATE 15 GM/60 ML UDBTL GT ONE (08:00)
--- NOTE | 2019-03-27 08:00 | NUR ---
critical result Patient noted with potassium 6.2, and Calcium 6.8. MD aware . New orders noted. Pharmacy to adjust TPN dosage.
[2019-03-27] MEDS: PANTOPRAZOLE SODIUM 40 MG/VIAL (PROTONIX) IVP SCH ×2 (08:14→20:44)
[2019-03-27] MEDS: methylPREDNISolone SOD SUCC 40 MG/ML VIAL IVP SCH (08:14)
[2019-03-27] MEDS: BALSAM PERU/CASTOR OIL 60 GM OINT...G. TP SCH (08:16)
[2019-03-27] MEDS: ENOXAPARIN SODIUM 80 MG/0.8 ML SYRINGE SUBCUT SCH ×2 (08:16→20:45)
[2019-03-27] MEDS: NYSTATIN 30 GM TOPICAL CREAM TP SCH ×2 (08:17→20:45)
--- NOTE | 2019-03-27 09:00 | NUR ---
medications All morning medications given as ordered. no adverse side effects. No nausea, no vomiting.
--- NOTE | 2019-03-27 10:36 | NUR ---
Gt feeding on hold Patient noted with residual of 150ml at this time. GT feeding held as ordered until residual decreases to <100
[2019-03-27] MEDS: NACL 0.9% 1,000 ML IV SCH ×2 (11:40→19:28)
--- NOTE | 2019-03-27 12:00 | NUR ---
Gt feeding on hold Gt feeding held, residual checked, 150ml residual still noted. No nausea, no vomiting. No other needs at this time.
--- NOTE | 2019-03-27 12:00 | NUR ---
wound care/ bowel movement patient noted with bowel movement. Skin care provided, linens changed. wound care done as ordered. No adverse side effects. Addendum: 03/27/19 at 1421 by Nagi Sapp RN wrong entry
--- NOTE | 2019-03-27 14:06 | NUR ---
GT feeding GT in place confirmed by ultrasound. GT feeding in place, patent, and intact. Started at 10cc as ordered. No nausea, no vomiting noted. Addendum: 03/27/19 at 1421 by Nagi Sapp RN wrong entry
--- NOTE | 2019-03-27 14:06 | NUR ---
Wound care Wound care done as ordered. Skin care provided. linens changed. No other needs at this time.
--- NOTE | 2019-03-27 16:26 | NUR ---
ileostomy ileostomy noted with red drainage with brown stool. MD aware. No new orders. Patient in stable condition.
[2019-03-27] MEDS ORDERED: METOCLOPRAMIDE HCL 10 MG/2 ML VIAL IVP PRN (17:00)
[2019-03-27 17:24] LABS: CHLORIDE 107 mmol/L (98-107); CREATININE 1.36 mg/dL (0.55-1.30); GLUCOSE 295 mg/dL (70-99); SODIUM SERUM 139 mmol/L (136-145); UREA NITROGEN, BLOOD 50 mg/dL (8-21)
[2019-03-27 17:35] LABS: ALANINE AMINOTRANSFERASE 925 U/L (12-78); ALBUMIN 1.1 g/dL (3.4-4.8); TOTAL BILIRUBIN 1.7 mg/dL (0.0-1.0)
[2019-03-27 17:45] LABS: ANION GAP 15 (5-15)
--- NOTE | 2019-03-27 17:49 | NUR ---
Schofield catheter/ urine output. Patient noted with 10cc urine output throughout the shift. MD aware. Bladder scan shows 250cc. MD stated to remove and insert new Schofield catheter and monitor. Schofield catheter inserted. No urine output at this time. MD aware. new order to increase fluids noted and carried out.
--- NOTE | 2019-03-27 17:51 | NUR ---
ileostomy change Ileostomy noted to be leaking. Changed and new bag applied. No other needs at this time.
--- NOTE | 2019-03-27 17:58 | NUR ---
critical lab Patients potassium 6.8, and calcium 6.5. MD aware. New orders noted. TPN stopped per MD.
[2019-03-27 17:59] LABS: CALCIUM 6.5 mg/dL (8.4-11.0); POTASSIUM 6.8 mmol/L (3.5-5.1)
[2019-03-27 18:08] LABS: ASPARTATE AMINOTRANSFERASE 3590 U/L (10-37)
--- NOTE | 2019-03-27 18:29 | NUR ---
closing note Patient resting in bed at this time, A/ox1, awake and nonverbal. No SOB. PICC line patent intact and infusing fluids and TPN as ordered. GTube feeding held S/T residual 150ml at this time. Continue to hold GT feeding per Dr. hough. No nausea, no vomiting noted. Ileostomy in place, no drainage. Rectal tube in place draining dark brown loose fluid. Schofield catheter in place draining yellow urine to gravity. SCD in place. On YESENIA mattress. On safety and aspiration precautions, HOB kept elevated, 3 side rails up, call light within reach. patient in stable condition. All needs met. Addendum: 03/27/19 at 1831 by Nagi Sapp RN TPN stopped. Iv fluids infusing as ordered.
--- NOTE | 2019-03-27 19:05 | NUR ---
OPENING NOTES Bedside report received from dayshift nurse. Patient received lying in bed, eyes open, no s/s of acute distress noted. Breathing is even and unlabored, HOB raised, vent to trach attached and operating. GTUBE held at this time. IVF infusing well, IV site patent, no signs of infiltration or infection noted. Schofield attached, secured, and draining by gravity. Flexiseal attached and draining by gravity. Ileostomy bag attached, clean, and dry at this time. Bed alarm on. Bed is locked and at lowest position. Will continue to monitor.
--- NOTE | 2019-03-27 19:30 | NUR ---
CODE STATUS Patient's daughter, Sarah, at bedside, confirmed code status, she only wants ACLS drugs, no defibrillation, no CPR, and to use trach if needed but to not reintubate. Will update Code status paperwork and inform .
[2019-03-27] MEDS ORDERED: TPN CENTRAL IV SCH ×20 (21:00)
[2019-03-27] MEDS ORDERED: [UNRECOGNIZED DRUG - OTHER] IV SCH ×20 (21:00)
[2019-03-27] MEDS ORDERED: POTASSIUM ACETATE IV SCH ×20 (21:00)
[2019-03-27] MEDS ORDERED: SODIUM ACETATE IV SCH ×20 (21:00)
--- NOTE | 2019-03-27 21:24 | NUR ---
ROUNDS Patient in bed, eyes closed, appears to be asleep. No s/s of acute distress noted. Breathing even and unlabored. Bed alarm on. Bed is locked and at lowest position. Will continue to monitor.
[2019-03-28] VITALS (22 sets, daily range): BP systolic 63–143
--- NOTE | 2019-03-28 00:40 | NUR ---
LOW BP Patient's blood pressure at 63/31. Dr. Talbot made aware, ordered NS 500 ml bolus, recheck BP after and if less than 90 systolic transfer to ICU. Also to increase IVF rate to 200. Will carry out orders.
[2019-03-28] MEDS ORDERED: NS 500 ML IV ONE (00:45)
--- NOTE | 2019-03-28 01:30 | NUR ---
BP ASSESSMENT BP at 100/75 at this time, HR at 95, SP02 at 99. All needs met at this time. Bed alarm on. HOB raised. Will continue to monitor.
[2019-03-28] MEDS: LevALBUTEROL HCL 1.25 MG/0.5 ML *CONC.* VIAL.NEB (XOPENEX CONC.) INH SCH ×4 (01:57→19:16)
--- NOTE | 2019-03-28 03:26 | NUR ---
ROUNDS Patient asleep. No signs of discomfort noted. Chest rise and fall even bilaterally. IVF infusing well. Bed alarm on. Bed is locked and at lowest position. Will continue to monitor.
[2019-03-28] MEDS: NACL 0.9% 1,000 ML IV SCH ×3 (05:12→17:01)
[2019-03-28] MEDS: DEXTROSE 50% JECT 50 ML DISP.SYRIN IVP PRN ×4 (05:15→16:48)
[2019-03-28] MEDS: METOPROLOL TARTRATE 5 MG/5 ML VIAL IVP SCH ×4 (05:16→18:00)
--- NOTE | 2019-03-28 05:53 | NUR ---
LOW SUGAR/LOPRESSOR HELD Accucheck done, BS at 61, hypoglycemic protocol initiated, D50 administered. BS rechecked 15 minutes later, BS at 93. Scheduled Lopressor held due to low BP, 92/39. All needs met at this time. Bed alarm on. Will continue to monitor.
--- NOTE | 2019-03-28 06:02 | NUR ---
SPOKE WITH DR TALBOT RE: LOW BP AND LOW SUGAR Dr. Talbot made aware of low BP and low sugar. No new orders given at this time. Will continue to monitor and reassess.
--- NOTE | 2019-03-28 06:13 | NUR ---
CLOSING NOTES Patient in bed, eyes closed, sleeping. No s/s of acute distress noted. Breathing is even and unlabored. IVF infusing well, IV site patent, no signs of infiltration or infection noted. HOB raised. Vent to trach attached and operating. Schofield attached, secured, and draining by gravity. Ileostomy attached, clean, and dry. Flexiseal attached, and draining by gravity. SCDs attached and operating. All needs met throughout the shift. Patient turned Q2H throughout the shift. Will continue to monitor until patient care is endorsed to oncoming dayshift nurse.
--- NOTE | 2019-03-28 07:38 | NUR ---
Opening note Patient resting in bed at this time, A/ox1, awake and nonverbal. No SOB. PICC line patent intact and infusing fluids as ordered. GTube feeding held as ordered. No nausea, no vomiting noted. Ileostomy in place, red/brown drainage. Rectal tube in place draining dark brown loose fluid. Schofield catheter in place, no urine output. SCD in place. On YESENIA mattress. On contact isolation for history of MDRO of sputum. On safety and aspiration precautions, HOB kept elevated, 3 side rails up, call light within reach. Will continue to monitor.
[2019-03-28 07:41] LABS: ANION GAP 21 (5-15); CHLORIDE 109 mmol/L (98-107); CREATININE 1.59 mg/dL (0.55-1.30); GLUCOSE 41 mg/dL (70-99); PHOSPHORUS 9.4 mg/dL (2.7-4.5); SODIUM SERUM 140 mmol/L (136-145); UREA NITROGEN, BLOOD 55 mg/dL (8-21)
--- NOTE | 2019-03-28 08:00 | NUR ---
Low BP Patient noted with low BP of 81/28. Paged , awaiting call back. Patient is lethargic, not opening eyes.
[2019-03-28] MEDS ORDERED: ALBUMIN HUMAN 25% 100 ML IV ONE (09:00)
--- NOTE | 2019-03-28 09:00 | NUR ---
Dr. Talbot called back Patient noted with critical labs, low BP, low HGB. New order to transfer to ICU stat noted.
[2019-03-28] MEDS ORDERED: COMMUNICATION ORDER XX ONE (09:15)
[2019-03-28 09:26] LABS: MEAN CORPUSCULAR HEMOGLOBIN 29 pg (27-31); MEAN CORPUSCULAR HGB CONC 27 % (32-36); MEAN CORPUSCULAR VOLUME 106 fL (79.0-98.0); PLATELET COUNT (AUTO) 217 K/uL (130-430); RED CELL DISTRIBUTION WIDTH 21.4 % (9.0-15.0)
[2019-03-28] MEDS ORDERED: NOREPINEPHRINE BITARTRATE 4 MG in D5W 246 ML IV PRN (09:30)
--- NOTE | 2019-03-28 09:30 | NUR ---
Critical lab/ Rapid response Patient noted with HGB 4.6, WBC 57.8, HCT 16.3, calcium 5.8, phosphorus 9.4. CO2 10. Dr. Khalil aware, Dr. Miller aware. Dr. hough aware. Patient O2 sat dropped 86%. Rapid response called. Patient to start on levophed, unable to get BP at this time. latest BP 81/23. patient to be transferred to ICU for BP Maintenance, low HGB. Called family, consent for blood transfusion given over phone by daughter. Family to come in and see patient today.
[2019-03-28 09:32] LABS: HEMATOCRIT 16.3 % (36-54); HEMOGLOBIN 4.4 g/dL (14.0-18.0); RED BLOOD CELL COUNT(AUTO) 1.54 MIL/uL (4.2-6.2); WHITE BLOOD COUNT (AUTO) 56.3 K/uL (4.8-10.8)
[2019-03-28 09:37] LABS: CALCIUM 5.8 mg/dL (8.4-11.0); POTASSIUM 7.1 mmol/L (3.5-5.1)
[2019-03-28 09:51] LABS: ATYPICAL LYMPHOCYTES % 1 % (0-0); BAND % (MANUAL) 5 % (0-6); BASOPHILS % (MANUAL) 0 % (0-2); EOSINOPHILS % (MANUAL) 0 % (0-7); LYMPHOCYTES % (MANUAL) 12 % (20-46); METAMYELOCYTES % 1 % (0-0); MONOCYTES % (MANUAL) 7 % (0-11); MYELOCYTES % 4 % (0-0)
[2019-03-28] MEDS: ENOXAPARIN SODIUM 80 MG/0.8 ML SYRINGE SUBCUT SCH (09:57)
[2019-03-28] MEDS: methylPREDNISolone SOD SUCC 40 MG/ML VIAL IVP SCH (09:58)
[2019-03-28] MEDS: PANTOPRAZOLE SODIUM 40 MG/VIAL (PROTONIX) IVP SCH ×2 (09:58→21:00)
[2019-03-28] MEDS: BALSAM PERU/CASTOR OIL 60 GM OINT...G. TP SCH (09:58)
[2019-03-28] MEDS: NYSTATIN 30 GM TOPICAL CREAM TP SCH ×2 (09:59→21:00)
--- NOTE | 2019-03-28 10:20 | NUR ---
Levophed Levophed started by ER nurse at bedside during rapid response. Started at 1020. patient transferred to ICU.
--- NOTE | 2019-03-28 10:20 | NUR ---
RN NOTES:PATIENT TRANSFERED TO ICU. CHARGE NURSE JENNY AWARE AND PRESENT ON THE TRANSFER.
[2019-03-28] MEDS ORDERED: NOREPINEPHRINE 4 MG/4 ML VIAL IV ONE (10:32)
[2019-03-28] MEDS ORDERED: EPINEPHrine JECT 0.1 MG/ML SYR IVP ONE (11:00)
--- NOTE | 2019-03-28 11:00 | NUR ---
report given Report given to Daxa TERRELL at ICU bedside.
--- NOTE | 2019-03-28 11:15 | NUR ---
AT 1113 A.M PATIENT IS CONDITION CHANGE , TRANSFER TO ICU ROOM 3, RECEIVED NURSING REPORT FROM MED-SURG MEHRDAD Austin
--- NOTE | 2019-03-28 12:06 | NUR ---
1027 NIDHI RESTREPO INCREASED FIO2 TO 100% DUE TO PT DESAT TO 70'S.
--- NOTE | 2019-03-28 12:10 | NUR ---
AT 1120A.M, SEE PATIENT, AT 1155 A.M, Dr. MACIAS SEE PATIENT THEY ARE UPDATED PATIENT,S CONDITION WITH FAMILY
--- NOTE | 2019-03-28 14:01 | NUR ---
Nutrition Follow Up RD reviewed pt's current EMR including diet hx, physician notes, nursing notes, pertinent labs/meds/procedures, care trends and care activity. Admitting Diagnosis: Diverting Colostomy Medical History Comment: Pt in terminal stage, hypertensive since this morning, TPN stopped and code called per MD note. 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 Fi02 at 100%. Generalized edema noted. Transferred to ICU. Subjective Information: MD speaking to family at time of RD visit. Current Diet Order/Nutrition Support: Glucerna 1.5 at 10ml/hr w/ 60ml free water flush Q6 and TPN D50%, AA10% at 60 ml/hr (goal rate), IL20% at 5 ml/hr via central line *stopped* NEW Estimated Energy Expenditure (kcals/day) 2657-2979 kcla/day (MSJ x 1.2 x 1.5 for wound healing) Estimated Protein Required (g/day) 98-130 gm/day (1.5-2 gmkg IBW for wound healing) Estimated Fluid Required (l/day) Per MD (CHF) Problem/Etiology/Signs/Symptoms Inadequate protein-calorie intake r/t current TPN infusion AEB TPN intake meeting <70% of est calories and <45% of est protein needs. 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 *ongoing Expected Outcomes/Goals Monitor TPN tolerance and intake w/ goal of pt meeting at least 75% of estimated nutritional needs, labs trending WNL, normal GI function, skin integrity/wt maintenance. Dietitian Recommendations *Continue NPO *Initiate nutrition support when/if medically able Follow Up High Risk: F/U in 2-3days
--- NOTE | 2019-03-28 14:05 | NUR ---
Dietitian Recommendations *Continue NPO *Initiate nutrition support when/if medically able. Please see Nutrition Follow Up for further details. LT, RD
--- NOTE | 2019-03-28 14:15 | NUR ---
AT 1255 P.M, START BLOOD TRANSFUSION P-RBC FIRST UNIT, AT 1415 P.M, FINISHED, NO S/S OF ADVERSE REACTION
[2019-03-28] MEDS: NOREPINEPHRINE BITARTRATE 4 MG in NS 246 ML IV PRN (15:31)
--- NOTE | 2019-03-28 16:10 | NUR ---
AT 1430 P.M, START BLOOD TRANSFUSION P-RBC SECOND UNIT, AT 1610 P.M, FINISHED, NO S/S OF ADVERSE REACTION
--- NOTE | 2019-03-28 17:01 | NUR ---
CONSULT PAGED CONSULTING MD: DR. NERI (DR. STINSON [employer]EN[employer]SE OR NURSERY TRANSPLANTER) CONSULTING SPECIALITY: NEPHRO. DIALED [phone] SPOKE TO ALLYSON ORDERED BY DR. VALENCIA
--- NOTE | 2019-03-28 18:30 | NUR ---
AT 1626 P.M, START BLOOD TRANSFUSION P-RBC THIRD UNIT, AT 1830 P.M, FINISHED, NO S/S OF ADVERSE REACTION
--- NOTE | 2019-03-28 19:21 | NUR ---
1640 P.M B.S 51, AFTER GIVE D50W ONE AMP IVP, RECHECK BLOOD SUGAR : 98 MG/DL
--- NOTE | 2019-03-28 19:41 | NUR ---
GIVE COMPLETE NURSING REPORT TO APPLE PEELER OPERATOR BRYON Austin
--- NOTE | 2019-03-28 20:35 | NUR ---
PR[facility] second UNIT TRANSFUSING NO S/SX OF ADVERSE REACTION HR 74 BPM BP @ 132/96 .
--- NOTE | 2019-03-28 22:13 | NUR ---
TUBE FEEDING ON HOLD patient Remains NPO GENERAL EDEMA IS NOTED TO BOTH ARMS & LEGS FEET , OFF LOADING WITH PILLOWS implemented comfort measures on schedule .
--- NOTE | 2019-03-28 22:16 | NUR ---
TRACH TO VENTILATOR SUCTION UP RIGHT POSITION THICK VALLE SPUTUM NOTED PATIENT IS MODIFIED CODE .
--- NOTE | 2019-03-28 22:18 | NUR ---
PR[facility] INFUSING second unit no s/sx of TRANSFUSION Reaction IVF tolerating .
[2019-03-29] VITALS: BP_SYST 89
[2019-03-29] MEDS: METOPROLOL TARTRATE 5 MG/5 ML VIAL IVP SCH
[2019-03-29] MEDS: NACL 0.9% 1,000 ML IV SCH ×2 (00:32→03:45)
[2019-03-29] MEDS: DEXTROSE 50% JECT 50 ML DISP.SYRIN IVP PRN ×2 (00:43→01:32)
[2019-03-29 01:00] VITALS: BP_SYST 98
--- NOTE | 2019-03-29 01:09 | NUR ---
D 50 ONE AMP ADMINISTER FOR BSG OF 36 md dl .
[2019-03-29] MEDS ORDERED: DEXTROSE 50% JECT 50 ML DISP.SYRIN ONE (01:44)
--- NOTE | 2019-03-29 01:45 | NUR ---
SECOND DOSE OF D 50 ONE AMP GIVEN RE CHECK OF BSG WAS 68 mg dl .
[2019-03-29 01:50] VITALS: BP_SYST 113
[2019-03-29 02:00] VITALS: BP_SYST 96
--- NOTE | 2019-03-29 02:08 | NUR ---
RE CHECK OF BSG 115 mg dl .
[2019-03-29 03:00] VITALS: BP_SYST 97
--- NOTE | 2019-03-29 03:00 | NUR ---
WOUND CARE PROVIDED TO SACRAL & THIGH AREAS ORDERED .
--- NOTE | 2019-03-29 03:40 | NUR ---
ASYSTOLE on the monitor CODE CALLED THREE DOSES OF EPI administer per PROTOCOL , ER DOCTOR @ THE BEDSIDE .
[2019-03-29] MEDS: NOREPINEPHRINE BITARTRATE 4 MG in NS 246 ML IV PRN (03:47)
[2019-03-29 03:57] VITALS: BP_SYST 111
[2019-03-29] MEDS: LevALBUTEROL HCL 1.25 MG/0.5 ML *CONC.* VIAL.NEB (XOPENEX CONC.) INH SCH (03:57)
--- NOTE | 2019-03-29 04:00 | NUR ---
ASYSTOLE ON THE MONITOR ER PHYSICIAN PRONOUNCED CODE END @ 0400 , PHONED FAMILY & UPDATED TO CONDITION , FAMILY STATES WILL BE IN TO SEE PATIENT .
== END 2019-03-29 04:00 | disposition expired | DRG 853 ==
LOC: SMU 03-17 19:00 → STU 03-17 19:52 → SIC 03-22 19:46 → STU 03-23 16:00 → SIC 03-28 10:41
PROVIDERS: ADMIT Family Medicine; ATTEND Family Medicine
PROC: 5A1955Z Respiratory Ventilation, Greater than 96 Consecutive Hours (ICD-10-PCS; principal; 2019-03-17)
PROC: 0D1B0Z4 Bypass Ileum to Cutaneous, Open Approach (ICD-10-PCS; 2019-03-22)
PROC: 0W9G0ZZ Drainage of Peritoneal Cavity, Open Approach (ICD-10-PCS; 2019-03-22)
PROC: 0FB00ZX Excision of Liver, Open Approach, Diagnostic (ICD-10-PCS; 2019-03-22)
PROC: 0DBV0ZX Excision of Mesentery, Open Approach, Diagnostic (ICD-10-PCS; 2019-03-22)
PROC: 30233N1 Transfusion of Nonautologous Red Blood Cells into Peripheral Vein, Percutaneous Approach (ICD-10-PCS; 2019-03-28)
DX: A41.9 Sepsis, unspecified organism (principal); L89.154 Pressure ulcer of sacral region, stage 4; J96.20 Acute and chronic respiratory failure, unspecified whether with hypoxia or hypercapnia; N17.0 Acute kidney failure with tubular necrosis; E43 Unspecified severe protein-calorie malnutrition; G82.50 Quadriplegia, unspecified; J18.9 Pneumonia, unspecified organism; R65.21 Severe sepsis with septic shock; C18.9 Malignant neoplasm of colon, unspecified; C78.6 Secondary malignant neoplasm of retroperitoneum and peritoneum; Z99.11 Dependence on respirator [ventilator] status; R18.8 Other ascites; C78.7 Secondary malignant neoplasm of liver and intrahepatic bile duct; C78.5 Secondary malignant neoplasm of large intestine and rectum; K91.30 Postprocedural intestinal obstruction, unspecified as to partial versus complete; K92.2 Gastrointestinal hemorrhage, unspecified; I48.0 Paroxysmal atrial fibrillation; E11.9 Type 2 diabetes mellitus without complications; F02.80 Dementia in other diseases classified elsewhere, unspecified severity, without behavioral disturbance, psychotic disturbance, mood disturbance, and anxiety; Z66 Do not resuscitate; I50.9 Heart failure, unspecified; I34.0 Nonrheumatic mitral (valve) insufficiency; D63.8 Anemia in other chronic diseases classified elsewhere; G30.9 Alzheimer's disease, unspecified; E87.5 Hyperkalemia; Z93.1 Gastrostomy status; Z85.46 Personal history of malignant neoplasm of prostate; Z74.01 Bed confinement status; Z68.26 Body mass index [BMI] 26.0-26.9, adult; I69.365 Other paralytic syndrome following cerebral infarction, bilateral; Y92.89 Other specified places as the place of occurrence of the external cause
CPT/HCPCS: 36415; 36600; 71045; 76700-TC; 80048; 80053; 80061; 81000-TC; 82310-TC; 82607; 82728; 82746; 82803-TC; 82962; 83540-TC; 83550-TC; 83690-TC; 83735-TC; 83880; 84100-TC; 84443-TC; 84478-TC; 85007; 85025; 85027; 85610-TC; 86886; 86900; 86901; 86920; 87081; 87086; 88304; 88307; 88313; 93005; 93306; 93971; 94002; 94003; 94640; 94760; A4409; A4421; A5061; C9113; G0378; J0171; J0610; J1030; J1160; J1650; J1815; J2185; J3370; J3475; J3480; J3490; J7030; J7040; J7050; J7060; J7120; J7512; J7612; P9021; P9046